=== PATIENT | female | born 1960 | race Caucasian/White ===

== ENCOUNTER → 2024-08-16 10:33 | Outpatient (REF) | payer BC, SELFPAY | LOC: HWRCS 10:33 | PROVIDERS: ATTENDING PHYSICIAN Thoracic Surgery (Cardiothoracic Vascular Surgery); FAMILY PHYSICIAN Internal Medicine | DX: I35.0 Nonrheumatic aortic (valve) stenosis (principal); Z01.810 Encounter for preprocedural cardiovascular examination | CPT/HCPCS: 75572; 93306; Q9967 ==

== ENCOUNTER 2024-09-07 05:07 | Inpatient (IN) | payer BC, SELFPAY ==
[2024-08-16 11:57] VITALS: BMI 40.7
[2024-08-16 12:58] LABS: % Basophils 0.7 % (0-2); % Eosinophils 1.1 % (0-6); % Immature Granulocytes 0.3 % (0-0.5); % Lymphocytes 22.8 % (20.5-51.1); % Monocytes 7.2 % (1.7-9.3); % Neutrophils 67.9 % (42.2-75.2); Absolute Basophils 0.1 10^3/uL (0-0.2); Absolute Eosinophils 0.1 10^3/uL (0-0.7); Absolute Lymphocytes 1.7 10^3/uL (1.2-3.4); Absolute Monocytes 0.5 10^3/uL (0.1-0.6); Absolute Neutrophils 4.9 10^3/uL (1.4-6.5); Hematocrit 38.4 % (37.0-47.0); Hemoglobin 13.2 g/dL (12.0-16.0); Mean Corp Hgb Conc. 34.4 g/dL (33.0-37.0); Mean Corpuscular Hgb 30.7 pg (27.0-31.0); Mean Corpuscular Volume 89.3 fL (81.0-99.0); Mean Platelet Volume 10.2 fL (7.4-10.4); Nucleated Red Blood Cells % 0 %; Platelet Count 283 10^3/uL (130-400); Red Cell Dist. Width 12.2 % (11.5-14.5); White Blood Cell Count 7.3 10^3/uL (4.8-10.8)
[2024-08-16 13:04] LABS: INR 0.92; PT 12.7 Sec (11.4-14.6)
[2024-08-16 13:16] LABS: ALT (SGPT) 16 U/L (0-35); AST (SGOT) 22 U/L (14-36); Albumin 4.5 g/dl (3.5-5.0); Alkaline Phosphatase 89 U/L (38-126); Blood Urea Nitrogen 12 mg/dl (7-17); Calcium 9.8 mg/dl (8.4-10.2); Carbon Dioxide 27 mmol/L (22-30); Chloride 101 mmol/L (98-107); Direct Bilirubin 0.1 mg/dl (0.0-0.4); Estimated Creatinine Clearance 93 ml/min; Glucose 102 mg/dl (70-99); Potassium 4.3 mmol/L (3.5-5.1); Sodium 137 mmol/L (135-145); Total Bilirubin 0.9 mg/dl (0.2-1.3); Total Protein 7.3 g/dl (6.3-8.2); eGFR > 60.00
--- NOTE | 2024-08-16 13:22 | CM ---
spoke to pt in PAT's, we discussed pre AVR teaching including driving and lifting restrictions. she lives with her husb in a 2 story home with 10 steps to enter. she denies any dme's. she has the cardiac educ book, soap and instructions, she is
agreeable to a f/u visit from the ct transitional care nurse after dc. cm role explained and all questions answered. plan is for AVR 09/07/24. cm to alfonzo.
[2024-08-16 13:28] LABS: Urine Albumin 1+ (Neg - Trace); Urine Bilirubin Negative (Negative); Urine Character Clear (Clear); Urine Color Yellow; Urine Glucose Negative (Negative); Urine Ketone Negative (Negative); Urine Leukocyte 1+ (Negative); Urine Nitrite Negative (Negative); Urine Occult Blood 2+ (Negative); Urine Urobilinogen Negative (Neg - 1+)
[2024-08-16 14:15] LABS: Urine Amorphous Seen; Urine Mucus Moderate; Urine Squamous Cell >30 /LPF (Few)
[2024-08-16 14:18] LABS: Urine Bacteria Few (Negative)
[2024-08-16 14:34] LABS: Glycohemoglobin (HgbA1c) 5.4 % (4.0-5.6)
[2024-09-07] VITALS (22 sets, daily range): BP systolic 76–125; BP diastolic 54–94; BMI 40.2
--- NOTE | 2024-09-07 05:30 | PTCARENOTE ---
Admitted patient into 2265. Confirmed 2 CHG baths. Washed patient with CHG wipes. ABO drawn. Medications reviewed. Patient clipped. Medications administered. Atenolol held due to Bradycardia. Awaiting CVOR
[2024-09-07] MEDS: PROTONIX 40 MG PO (05:32)
[2024-09-07] MEDS: MAGNESIUM OXIDE 500 MG PO (05:32)
[2024-09-07] MEDS: BACTROBAN 2% OINTMENT 1 APPLIC NASAL ×2 (05:33→19:35)
--- NOTE | 2024-09-07 05:44 | W.PN.UPDATE ---
Update Note
Progress Note Update
Pt's AM dose BB is contraindicated and not given. Pt's HR 47 bpm
--- NOTE | 2024-09-07 06:23 | W.CVOR.SURPR ---
CVOR Surgeon Immed Pre Op
-
I have examined this patient prior to performance of the scheduled procedure.
The patient's condition is unchanged from the time of the dictated/written History and
Physical and the patient is able to undergo the scheduled procedure.
Sternotomy AVR (bio) + Asc Ao Repair + MC Clip
[2024-09-07 07:29] LABS: Urine Albumin 2+ (Neg - Trace); Urine Bilirubin Negative (Negative); Urine Character Clear (Clear); Urine Color Yellow; Urine Glucose Negative (Negative); Urine Ketone Negative (Negative); Urine Leukocyte Negative (Negative); Urine Nitrite Negative (Negative); Urine Occult Blood 2+ (Negative); Urine Specific Gravity 1.025 (<1.030); Urine Urobilinogen Negative (Neg - 1+)
[2024-09-07 07:31] LABS: ACT+ - POC 96 Seconds (82-134)
[2024-09-07 07:39] LABS: Urine Squamous Cell 0-2 /LPF (Few)
[2024-09-07 07:40] LABS: Urine Bacteria Few (Negative); Urine Mucus Moderate
--- NOTE | 2024-09-07 08:17 | CM ---
Reviewed chart. Mrs. Hawkins is in the operating room today. Prior to admission she resides with her spouse in a two stpry home with ten steps to enter. Prior to admission she was independent with ambulation and adls. She does not have any DME in the
home. She has a prescription plan. Medical work-up in progress. The discharge plan is to return home with her spouse and a home visit by the Transitional Care Nurse when medically stable.
[2024-09-07 08:19] LABS: ACT+ - POC 581 Seconds (82-134)
[2024-09-07 08:34] LABS: B.E. - POC 0.7 mmol/L; Glucose - POC 106 mg/dl (70-99); HCO3 - POC 25 mmol/L (21-28); Hematocrit - POC 33 % PCV (37-47); Hemodilution- POC No; Hemoglobin Calculated - POC 11.3; Ionized Calcium - POC 1.15 mmol/L (1.15-1.33); O2 Saturation %Calculated-POC 99.9 % (94-98); PCO2 - POC 38 mmHg (35-48); PO2 - POC 251 mmHg (83-108); Potassium - POC 3.4 mmol/L (3.5-5.1); Sodium - POC 144 mmol/L (136-145); Specimen Type - POC Arterial; pH - POC 7.43 (7.35-7.45)
[2024-09-07 08:44] LABS: ACT+ - POC 569 Seconds (82-134)
[2024-09-07 09:46] LABS: B.E. - POC 5.5 mmol/L; Glucose - POC 128 mg/dl (70-99); HCO3 - POC 29 mmol/L (21-28); Hematocrit - POC 27 % PCV (37-47); Hemodilution- POC Yes; Hemoglobin Calculated - POC 9.3; Ionized Calcium - POC 0.97 mmol/L (1.15-1.33); Lactate - POC 0.61 mmol/L (0.36-0.75); O2 Saturation %Calculated-POC 99.9 % (94-98); PCO2 - POC 37 mmHg (35-48); PO2 - POC 324 mmHg (83-108); POC Comment CPB; Potassium - POC 3.4 mmol/L (3.5-5.1); Sodium - POC 141 mmol/L (136-145); Specimen Type - POC Arterial
[2024-09-07 09:56] LABS: ACT+ - POC 489 Seconds (82-134)
[2024-09-07 10:13] LABS: B.E. - POC -3.9 mmol/L; Glucose - POC 299 mg/dl (70-99); HCO3 - POC 26 mmol/L (21-28); Hematocrit - POC 31 % PCV (37-47); Hemodilution- POC Yes; Hemoglobin Calculated - POC 10.7; Ionized Calcium - POC 1.08 mmol/L (1.15-1.33); Lactate - POC 4.47 mmol/L (0.36-0.75); O2 Saturation %Calculated-POC 99.9 % (94-98); PCO2 - POC 72 mmHg (35-48); PO2 - POC 340 mmHg (83-108); POC Comment WARM; Potassium - POC 2.7 mmol/L (3.5-5.1); Sodium - POC 142 mmol/L (136-145); Specimen Type - POC Arterial; pH - POC 7.16 (7.35-7.45)
[2024-09-07 10:22] LABS: ACT+ - POC 505 Seconds (82-134)
[2024-09-07 10:40] LABS: Glucose - POC 309 mg/dl (70-99); HCO3 - POC 23 mmol/L (21-28); Hematocrit - POC 30 % PCV (37-47); Hemodilution- POC Yes; Hemoglobin Calculated - POC 10.3; Ionized Calcium - POC 0.99 mmol/L (1.15-1.33); Lactate - POC 3.36 mmol/L (0.36-0.75); O2 Saturation %Calculated-POC 98.9 % (94-98); PCO2 - POC 42 mmHg (35-48); PO2 - POC 133 mmHg (83-108); Potassium - POC 4.4 mmol/L (3.5-5.1); Sodium - POC 142 mmol/L (136-145); Specimen Type - POC Arterial; pH - POC 7.36 (7.35-7.45)
[2024-09-07 10:51] LABS: ACT+ - POC 449 Seconds (82-134)
[2024-09-07 11:08] LABS: B.E. - POC 1.6 mmol/L; Glucose - POC 248 mg/dl (70-99); HCO3 - POC 27 mmol/L (21-28); Hematocrit - POC 30 % PCV (37-47); Hemodilution- POC Yes; Hemoglobin Calculated - POC 10.2; Ionized Calcium - POC 1.02 mmol/L (1.15-1.33); Lactate - POC 3.27 mmol/L (0.36-0.75); PCO2 - POC 46 mmHg (35-48); PO2 - POC 431 mmHg (83-108); Potassium - POC 3.4 mmol/L (3.5-5.1); Sodium - POC 145 mmol/L (136-145); Specimen Type - POC Arterial; pH - POC 7.38 (7.35-7.45)
[2024-09-07 11:16] LABS: ACT+ - POC 448 Seconds (82-134)
[2024-09-07 11:32] LABS: B.E. - POC -1.1 mmol/L; Glucose - POC 171 mg/dl (70-99); HCO3 - POC 26 mmol/L (21-28); Hematocrit - POC 31 % PCV (37-47); Hemodilution- POC Yes; Hemoglobin Calculated - POC 10.4; Ionized Calcium - POC 1.62 mmol/L (1.15-1.33); O2 Saturation %Calculated-POC 99.7 % (94-98); PCO2 - POC 57 mmHg (35-48); PO2 - POC 242 mmHg (83-108); Potassium - POC 3.5 mmol/L (3.5-5.1); Sodium - POC 147 mmol/L (136-145); Specimen Type - POC Arterial; pH - POC 7.28 (7.35-7.45)
[2024-09-07 11:36] LABS: ACT+ - POC 68 Seconds (82-134)
[2024-09-07 11:40] LABS: ACT+ - POC 76 Seconds (82-134)
[2024-09-07] MEDS: NEURONTIN PO ×3 (11:59→21:20)
--- NOTE | 2024-09-07 12:06 | W.PN.CT.SURG ---
CT Surgery Operative Note
-
CARDIAC SURGERY OPERATIVE REPORT
Preoperative Diagnosis: Bicuspid aortic valve, severe stenosis, ascending aortic aneurysm
Postoperative Diagnosis: Same, intraoperative intramural hematoma with imminent Type A Aortic dissection of the ascending thoracic aorta
Procedure(s) Performed:
1. Standard sternotomy
2. Urgent aortic and right atrial cannulation
3. Moderate hypothermic circulatory arrest with selective antegrade perfusion
4. Hemiarch replacement of the aorta as well as the ascending segment
5. Aortic root replacement - biological Bentall (25mm Valved Conduit)
6. Reimplantation of the right and left coronary ostia
7. Placement of temporary atrial and ventricular pacing wires
8. Transesophageal echocardiography
Date of Surgery: 09/07/2024
Comorbidities:
1. Bicuspid aortic valve morphology with severe stenosis
2. Ascending aortic aneurysm of the thoracic aorta
3. Morbidly obese with a BMI of greater than 30
4. Hypertension
5. Hyperlipidemia
6. Family history of CAD
7. Polyarteritis
8. Metabolic syndrome
9. Nephrolithiasis
10. Anxiety
Attending Surgeon: Lokesh Solis MD, MS
Assistants: Janneth Villalobos PA-C (present and necessary to employee relations assistant, retraction, suction, exposure, suture management, and wound closure under my direction)
Anesthesiology: Choco Hunter MD and Jose Arnold CRNA
Scrub and Circulating RNs: Margaret Kinsey RN and Skyla Hinkle, GURVINDER, Tyron Mercado, GURVINDER and Alfred Mann RN
Real Estate Broker: Frances Tucker CCP
Anesthesia: GETA
EBL: per perfusion records
Products: None, Factor VII only post protamine, and 325cc of CellSaver Scavenged Blood from the field
CPB Time: 172 minutes
Aortic Cross Clamp Time: 106 minutes
Circulatory Arrest: 39 minutes
Selective Antegrade Cerebral Perfusion: 35 minutes
Indication(s) for Procedures: This is a 63-year-old female with known bicuspid valve morphology with severe aortic valve stenosis, she was also found to have a 4.6 cm ascending aortic aneurysm without rupture. Given her young age, and severe
stenosis and slow creeping on her symptoms, she was offered surgical intervention with the idea of lifetime management.
Aorta and Aortic Valve Description: Heavily calcified towards the noncoronary cusp, right left fusion and heavy calcification at the right and non commissure. There is also evidence of aortic annular disjunction particularly towards the right
coronary cusps with the annulus had migrated down with evidence of muscle above the level of the annulus into sinus. Her tissue was extremely thin and friable. Her root was also very thin and abnormal in appearance. The right and left coronary
ostia were in their normal anatomic positions. There was not a significant LVOT calcium aside from calcium that extended from the noncoronary cusp down towards the aorto mitral curtain.
Findings: Her left ventricular ejection fraction preoperatively was normal at 65% with no significant regional wall motion abnormalities. She had a moderate degree of interventricular septal hypertrophy. But her anatomy was not at risk for
significant systolic anterior motion of the mitral leaflets. Following surgery EF remained the same at 65% with no new regional wall motion abnormalities. Her LV contractions were symmetrical and concentric. After heparinization and attempted
placement of pursestring sutures at the distal ascending/proximal arch, there was a significant hematoma as well as hemorrhage from the site. I elected to remove the pursestrings and applied pressure with a lap pad for several minutes. Even with
this, there was still a significant degree of bleeding from the tissue and a spreading hematoma distally and proximally down towards the root at the AP window. There was significant discern for intramural hematoma versus dissection. I elected to
place a temporary pledgeted 4-0 suture at the mid ascending in the aneurysm and cannulated with a Seldinger technique using the EOPA 20 Faroese cannula. This was done under KARINA guidance to ensure that the wire was in the true lumen down towards the
descending thoracic aorta. Once you are on cardiopulmonary bypass, I was able to have more controlled situation so we started to cool down towards a core temperature of 28 �C. While this was occurring, I dissected the AP window and found a
significant hematoma that extended down towards the root. Tissue was extremely friable. At this point I elected to cross clamp at the mid ascending aneurysm and 2 arrests using a 12-gauge Angiocath directly into the root given 1200 cc of
cardioplegia. At this point I opened the root and performed the aortic valve leaflet resection. The root was abnormal in appearance and had evidence of angle and ventricular disjunction. At this point I elected to perform a full root replacement.
The distal graft was done once we reached our target temperature using selective antegrade cerebral perfusion and moderate hypothermic circulatory arrest. [place] was used to send which the intima media and adventitial tissue on both sides. The
distal anastomosis was done using 4-0 Prolene in a running fashion. BioGlue was used to reinforce the suture lines. Once we completed the distal anastomosis I allowed reperfusion through the site cannula to the body and commenced rewarming to a
target temperature 34 �C. At this point I completed most of the root replacement using a total of 14 pledgeted 2 Ethibond sutures placed in the LVOT through annulus through sewing cuff of the valved conduit. Left and right coronary buttons were
reimplanted using 5-0 Prolene and bovine pericardium as a gasket. The graft graft anastomosis was performed using bovine as a gasket between the suture line. The plan was to come off cardiopulmonary bypass, reversed with protamine and give factor
VII immediately. There was good hemostasis and no additional blood products were required. Cardiac index end of case was 2.5 on no inotropic support, after short period of AV pacing she resumed her sinus rhythm. Modifier 22 due to the emergent
nature of cannulation and repair.
Specimen(s):
Ascending Aorta
Aortic Valve Leaflets
Aortic Sinus Tissue
Prosthesis:
1. 25mm LUCSA KONECT Valved Conduit, SN [id number]
2. Single Side Arm Intergard Woven Graft, 28mm, SN [id number]
3. Bovine pericardium, SN [id number]
4. Bard PTFE [place], SN [id number]
5. BioGlue, SN [id number]
6. FloSeal, SN [id number]
Description of Procedure: The patient was taken to the operating room. Their identity and procedure to be performed were verified and they were positioned supine on the operating table. Induction via general anesthesia with endotracheal intubation
was performed and central venous access and arterial monitoring were inserted. A preoperative transesophageal echocardiogram was performed to assess cardiac function and valvular function. The patient was then prepped and draped from chin to feet in
a sterile fashion. A preoperative time-out was performed with all members of the team present. A midline chest incision was performed along with median sternotomy. The innominate vein was isolated. Full heparinization was given (a total of 50,000
units). We created a pericardial well. The aortic cannulation site was chosen where it was soft, pliable, and free of calcium. Pursestring sutures were initially placed at the distal ascending aorta approximately arch junction and immediately with
the first suture, there was significant amount of hemorrhaging and hematoma buildup. Additional pledgeted suture was attempted to be placed however this was to no good effect. At this point elected to cut out the sutures and applied pressure using
a Ray-Holli sponge for approximately 2 minutes. Even with this there was still a significant degree of bleeding and there was an obvious hematoma propagating distally and proximally down towards the AP window. I elected to perform a temporary
pledgeted 4-0 prolene pursestring at the mid portion of the aneurysm and changed out my cannulas for a 20F EOPA cannula and cannulated under KARINA guidance with Seldinger technique verified that the wire was in the true lumen and in the descending
thoracic aorta. Serial dilation was performed before insertion of the cannula. A triple-stage venous cannula through the right atrial appendage. The arterial cannula line had an appropriate bounce and correlating pressures with test dosing. The ACT
was confirmed to be over 400 and because there was significant amount of hemorrhaging and blood loss we elected to not perform retrograde autologous priming was performed before commencing cardiopulmonary bypass. Once on cardiopulmonary bypass with
better pulm soccer control, a left ventricular vent was placed at the right superior pulmonary vein and secured. At this point I dissected the PA away from the ascending aorta and found that there was significant degree of hematoma at the AP window
that propagated down towards the root. I decided at this point to perform a kimberly-arch repair, and so started cooling to a core temp of 28 degrees C. The aortic cross-clamp was placed after decreasing the flow on the bypass and mean arterial
pressure. A total of 1.2L initial dose of antegrade Del-Nido cardioplegia solution was given using a 12G angiocath into the root and planned for re-dosing every 60 minutes as necessary. There was rapid electro-mechanical arrest of the heart at 250
cc of cardioplegia. Cold slush was placed into a sponge and topically on the RV while we systemically cooled to 28 degrees centigrade.
Carbon dioxide was used to flood the field. Cooling, I did transect the aorta circumferentially and placed a sutures at the commissures. The aortic valve was analyzed and resected as it was heavily calcified. Any calcium heading down towards the
aorta much greater was also debrided using rongeurs. There was evidence of annular disjunction with creeping of muscle into the sinuses. At this point I elected to perform a bio Bentall and so harvested the coronary buttons accordingly. 4-0
prolene pledgeted sutures were placed at the top of the coronary buttons in order to facilitate retraction. At this point, we had reached our target temperature and so the patient was placed into steep Trendelenburg position. Prior to this I had
dissected out and isolated the innominate artery as well as the left common carotid with Vesseloops in a double looped fashion. Flows were dropped to 0 and the aortic cannula was removed and the cross-clamp was released. Allowing the patient to
exsanguinate into the pump. Eyedrops echo was placed down the descending thoracic aorta and the ascending aortic tissue was resected up to the point of injury. Small tears were seen at this site. I excluded them by asked resecting this tissue and
then under direct vision I placed a soft retrograde cannula up into the innominate artery inflated the balloon de-aired and gave selective antegrade cerebral perfusion while tightening up both vessel loops to the head vessels. A small 7.5 mm with
drip of felt was fashioned and placed on the inside and outside of the aorta. 4-0 Prolene nonpledgeted sutures were placed to tack the felt sandwich into place. I sized the distal ascending aorta to a 28 mm graft. This was fashioned appropriately
and the distal anastomosis was performed with 4-0 Prolene in a running fashion. Endoflip was used to tighten up the sutures. Once this was done BioGlue was used to reinforce the suture line. I placed the existing EOPA cannula into the SideArm of
the graft and tied it with silk sutures. I then increased flows in the pump gently toward 2D air head vessels as well as the ascending thoracic aorta. A cross-clamp was then applied proximal to the SideArm and flow to the body and head vessels
were resumed with rewarming commenced to a target temperature of 34 �C. I turned my attention back to the root. I also redosed 200cc of cardioplegia in each ostia at this point. A total of 14 pledgeted 2-0 ethibond annular sutures were placed
[id number] (inverted) circumferentially. These were brought through the sewing cuff of the valved conduit which as then parachuted into place. A Cor-Knot device was used to secure the annular sutures. An eye cautery was used to first create a
small opening to perform left main coronary button anastomosis. The button was then trimmed accordingly and using 5-0 Prolene with a bovine pericardial gasket, the button was reimplanted toward the Filiberto-left sinus. BioGlue was used to reinforce the
buttoms. Volume was then used to fill the heart to estimate the location for the right coronary button anastomosis. In a similar fashion an eye cautery was used to create a small opening in the filiberto-right sinus and anastomosis was created with 5-0
Prolene running fashion using bovine pericardium as a gasket. The two grafts were trimmed accordinately and a graft to graft anastomosis was performed with 4-0 prolene using bovine pericaridum as a gasket.
De-airing maneuvers were performed and temporary bipolar ventricular pacing wires were placed on the base of the right ventricle and temporary atrial pacing wires at the SVC/Atrial junction. The patient was placed in a Trendelenburg position and
flows on bypass were lowered. The aortic cross clamp was removed and flows were slowly brought back up. The suture lines appeared hemostatic. Transesophageal echocardiography revealed no AI and appropriate prosthetic function. Once de-airing was
satisfactory, the left ventricular vent was removed. After verifying acceptable parameters, we initiated weaning from cardiopulmonary bypass. Once we were off cardiopulmonary bypass, the venous cannula was clamped and removed. A test dose of
protamine was administered and the patient was monitored for any adverse reaction before resuming protamine. Once half of the protamine dose was delivered, pump suckers were turned off and the systolic blood pressure was lowered for aortic
decannulation. This was done by double clamping the side arm and transecting it. Once hemostasis was confirmed, a GoldLoad EndoGIA stapler was used at the base of the side arm with additional large clips for reinforcement. All cannulation sites were
oversewn with a 4-0 prolene. The suture lines were inspected and hemostasis was confirmed. Mediastinal hemostasis was obtained. Two 24Fr Lonnie drains were placed within the pericardium. The sternum was approximated with 4 #7 single and 3 #8 double
stainless steel wires. Fascia was approximated with #1 vicryl suture. The subcutaneous, dermis and epidermis were closed in layers in a running fashion. The skin wound was cleansed and dressed.
All instrument, sponge, and needle counts were confirmed to be correct x 2 at the end of the operation. The patient was transferred to the cardiac intensive care unit in critical but stable condition.
I, Dr. Lokesh Solis, was present, scrubbed for, and performed all critical elements of this procedure.
Lokesh Solis MD, MS
Cardiothoracic Surgeon
[facility]
This dictation was created using the [employer] dictation system. Please excuse any grammatical, typographical, or 'sound alike' errors
[2024-09-07 12:12] LABS: B.E. - POC -5.1 mmol/L; Glucose - POC 120 mg/dl (70-99); HCO3 - POC 22 mmol/L (21-28); Hematocrit - POC 28 % PCV (37-47); Hemodilution- POC Yes; Hemoglobin Calculated - POC 9.7; Ionized Calcium - POC 1.26 mmol/L (1.15-1.33); Lactate - POC 5.15 mmol/L (0.36-0.75); O2 Saturation %Calculated-POC 99.6 % (94-98); PCO2 - POC 46 mmHg (35-48); PO2 - POC 207 mmHg (83-108); Potassium - POC 2.9 mmol/L (3.5-5.1); Sodium - POC 148 mmol/L (136-145); Specimen Type - POC Arterial; pH - POC 7.28 (7.35-7.45)
[2024-09-07 12:27] LABS: Glucose - Point of Care 54 mg/dl (70-99)
[2024-09-07 12:37] LABS: B.E. -0.8 mmol/L; HCO3 25.8 mmol/L (21-28); Ionized Calcium 1.23 mMOL/L (1.15-1.33); O2 Saturation % 98.6 % (94-98); PCO2 50 mmHg (32-35); PO2 90 mmHg (83-108); Sodium 141 mMOL/L (136-145); pH 7.32 (7.35-7.45)
[2024-09-07] MEDS: NSS 500 IV (12:38)
[2024-09-07] MEDS: DEXTROSE 50% SYRINGE 12.5 GRAMS IV (12:38)
[2024-09-07] MEDS: ANCEF 10 IV ×2 (12:38)
[2024-09-07 12:39] LABS: Hematocrit 32.8 % (37.0-47.0); Hemoglobin 11.5 g/dL (12.0-16.0); Platelet Count 154 10^3/uL (130-400)
[2024-09-07] MEDS: KCL 50 IV ×3 (12:41→14:52)
[2024-09-07 12:42] LABS: Glucose - Point of Care 104 mg/dl (70-99)
[2024-09-07 12:47] LABS: INR 0.72; PT 10.5 Sec (11.4-14.6)
[2024-09-07 12:48] LABS: APTT 29.1 Sec (23.4-35.0)
--- NOTE | 2024-09-07 12:54 | W.PN.UPDATE ---
Update Note
Progress Note Update
63-year-old female was electively admitted on 09/07/2024 for AVR, root replacement due to severe aortic stenosis and ascending aortic aneurysm of 4.6 cm
IV fluids: 1500
U.O.:� 550
Blood:� none
Wires:� A + V wires
Drips: Cardene, Levophed off on arrival to CVICU, Insulin, Precedex
�
NEURO: sedated, pupils +2mm B/L
RESP: #8OT @23cm> 400/60%/14/8 as SPO2 93%. Lungs clear B/L. 2 mediastinal (20cc on arrival) chest tubes to -20cm suction. Sanguineous drainage, no air leak,no crepitus
CV: RRR +S1, S2, no S3, no�rub, no murmur. Dermabond to median sternotomy. RIJ w/[place] locked @ 46cm. PA ; CVP 13 ; C.O 3.25/CI 1.63; SVR 1600
ABD: obese, soft, no BS
EXT: no edema, +2/4 DP pulses B/L, no femoral bruit, left radial A-line intact
: [place] with clear yellow urine
�
A/P: POD #0 s/p Bio-Bentall root replacement #25, Hemiarch replacement, reimplantation of coronaries
KARINA: EF�60-65%, AV mean 7mmHg
- wean and extubate
- will need instruction regarding antibiotic prophylaxis for dental and invasive procedures
- keep SBP 90-110mmHg
# acute surgical blood loss anemia-expected
- trend CBC
# HTN
- on Atenolol 50mg BID @ home
- protocol Lopressor post-op
�
# Post-op Hypoglycemia
- insulin infusion >off
- D50 1/2 amp
- trend glucose
�
# Class II Obesity (BMI 40.2)
- calorie controlled diet and increase calorie expenditure
[2024-09-07 13:06] LABS: Blood Urea Nitrogen 17 mg/dl (7-17); Estimated Creatinine Clearance 92 ml/min; Glucose 54 mg/dl (70-99); Magnesium 2.9 mg/dl (1.6-2.3)
--- NOTE | 2024-09-07 13:11 | CON.INTV ---
Consultation
Consultation Request
Date/Time Consultation Requested: 09/07/24
Date/Time Consultation Performed: 09/07/24
Performing Provider: Lauri
Reason for Consultation: CVICU
Medical History
-
History of Present Illness:
Patient is a 63-year-old female with a previous history of aortic valve stenosis, presenting for elective surgical aortic valve replacement. Denied any associated symptomatology including shortness of breath, fatigue. She underwent elective
procedure 09/07/24 and postoperatively transferred to CVICU on mechanical ventilation for further management.
Past Medical History
Past Medical History: Other (see list below)
Social History
Tobacco: Non-smoker
Alcohol: None
Drug: None
Family History
Family History: Reviewed & Not Pertinent
Allergies / Home Medications
Allergies
Allergy/AdvReac Type Severity Reaction Status Date / Time
No Known Allergies Allergy Unverified 08/12/24 11:07
Home Medications
�Medication �Instructions �Recorded �Confirmed �Last Taken �Type
aspirin 81 mg capsule 81 mg PO DAILY 08/12/24 09/07/24 09/06/24 08:00 History
atenolol 50 mg tablet 50 mg PO BID 08/12/24 09/07/24 09/06/24 08:00 History
omega-3 fatty acids 1,000 mg PO DAILY 08/12/24 09/07/24 08/30/24 15:00 History
magnesium 250 mg tablet 250 mg PO DAILY 09/07/24 09/07/24 09/06/24 15:00 History
Review of Systems
-
Unable to Obtain full review of systems at this time due to: Patient Intubation
Vitals / Labs / Diagnostic Testing
Vital Signs
Temp Pulse Resp BP Pulse Ox
96.0 F L 63 0 90/69 92
09/07/24 13:00 09/07/24 13:05 09/07/24 13:05 09/07/24 13:01 09/07/24 13:05
Lab Data
09/07/24 12:26
Laboratory Results
09/07/24
12:26
PT 10.5 L
INR 0.72
APTT 29.1
pH 7.32 L
pCO2 50 H
pO2 90
HCO3 25.8
O2 Delivery Level
Diagnostic Testing:
Physical Exam
-
HEENT: Normocephalic, Anicteric and Moist Mucous Membranes
Cardiovascular: S1/S2 and Regular Rhythm
Respiratory: Clear, Non-Labored Respirations and Other (ETT/chest tube)
GI: Soft, Non Distended and Non Tender
Neurology: Other (sedated/intubated)
Skin: Warm, Dry and Good Color
General: Comfortable and Other (NAD)
Assessment
-
Patient is a 63-year-old female with a previous history of aortic valve stenosis, presenting for elective surgical aortic valve replacement. Denied any associated symptomatology including shortness of breath, fatigue. She underwent elective
procedure 09/07/24 and postoperatively transferred to CVICU on mechanical ventilation for further management.
Bicuspid aortic valve, severe stenosis, ascending aortic aneurysm s/p Hemiarch replacement of the aorta as well as the ascending segment/Aortic root replacement - biological Bentall (25mm Valved Conduit)/Reimplantation of the right and left coronary
ostia 09/07/24
Perioperative MV
Postop anemia
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
Palpitations
Hypertension
Family history of premature CAD
Morbid obesity, BMI 40
Lumbar stenosis status post epidural injections
Hyperlipidemia
Metabolic syndrome
Polyarthritis
Anxiety
Nephrolithiasis
Appendectomy 2012
Cardiac cath 07/14/2024
Plan
S/p aortic intervention POD #0
Titrate off pressors per protocol
ECHO reviewed with normal function
PA catheter readings reviewed
Management of chest tubes per primary service
Intubated/sedated, initiate SAT when able
Pain control
RASS goal of 0 to -1
Intubated for procedure, SBT trial when patient able to spontaneously breath
Current vent settings: SIMV 400/14/60/5+
ABG(s) reviewed--slight hypercarbia noted, possible indication of underlying ANDREY/OHS (7.32-50, 7.35-46)
CXR with no obvious opacities/infiltrates, low lung volumes, ETT in good position, lines/tubes in place
Extubate per protocol
Maintain supplement oxygen as needed
No prior history of pulmonary disease, suspect ANDREY
OP PSG recommended
Prior PFTs reviewed--none
Can add nebulizers if needed
Aspiration precautions
Encouraged incentive spirometry, OOB/ambulation/early mobility
Advance diet as tolerated following extubation
GI prophylaxis if indicated for mechanical ventilation >48 hours
Monitor critical I/O's
Campa/chest tube output
Hb/platelets postoperatively stable, mild anemia noted
Trend CBC for now
Can transfuse if indicated for Hb <7, plt <50 in surgical patients
DVT prophylaxis including SCDs
Insulin protocol initiated and ongoing
Transition to SQ/off as indicated per team
We will follow
Diagnostic Data
Chest X-Ray: 09/07/24- The tip of endotracheal tube is 9 mm above the mae.. The tip of the right [place]-Mario catheter is in the region of the pulmonary outflow tract. The tip of a left chest tube is in the left costophrenic angle. There is a
mediastinal drainage catheter present. Lungs: The lungs are clear. No pleural effusion or pneumothorax.
11/01/21- 1. Clear lungs.
2. Mild cardiomegaly, without evidence of decompensated congestive heart failure.
CT Scan: Coronary CT 08/19/24- No pulmonary nodules, areas of airspace disease, pleural effusions, pericardial effusions or enlarged lymph nodes in the thorax. Origins of the great vessels from the aortic arch are patent.
Fusiform aneurysmal dilatation of the ascending thoracic aorta measuring up to 4.6 cm. Minimal coronary artery calcifications.
Echo:
KARINA 09/07/24- Normal left ventricular systolic function with no wall motion abnormalities. Septal hypertrophy is present. The LVEF is 60-65% by visual inspection. True bicuspid arotic valve in the 8-2 position with severe calcification extending
into the aortomitral continuity. Severe aortic stenosis. Grossly normal mitral valve. Grossly normal tricuspid valve. Ectatic ascending aorta with proximal of diameter 46 mm. The mid arch diameter is 28 mm. A small pericardial effusion is present.
08/16/24- Normal LV size and function without regional wall motion abnormalities. LVEF is 60-65% by visual estimation. Stage I diastolic dysfunction suggestive of abnormal relaxation. Normal right ventricular size and function.
Calcified possibly bicuspid AV with fusion of LCC and NCC. Moderate to severe aortic stenosis. Estimated pulmonary artery pressure of 29 mmHg assuming a right atrial pressure of 3 mmHg. Ascending aorta dilatation (4.5 cm). No prior study available
for comparison.
PFT's:
Reports and relevant images were personally reviewed.
Critical Care time 51 mins -- The patient is admitted for acute critical illness for the treatment of vital organ failure and/or prevention of further life-threatening conditions. Total care includes time spent in review of history, physical exam,
medications, hemodynamic/ventilator parameters, laboratory data, imaging and discussion with house staff, pharmacy, respiratory therapy, patrol officer, and nursing.
[2024-09-07] MEDS: DILAUDID 0.5 MG IV (13:14)
--- NOTE | 2024-09-07 13:27 | PTCARENOTE ---
Patient received from CVOR at 1220; Sedated and intubated; NSR rhythm on monitor; VSS; Epicardial AV wires insulated with temporary pacemaker turned on - settings DDD 40/10/0.4 40/10/0.8; +2 DP and radial pulses present; Lungs diminished at bases;
ETT size 8 positioned and secured at 22 cm right lip; Ventilator settings SIMV 14/400/5/5 FiO2 60%; CTx2 to -20 cm wall suction draining bloody drainage - no air leak, tidaling, or crepitus noted; Hypoactive BS; Cmapa catheter in place draining
clear, yellow urine; Sternal incision midline incision glued and approximated - CDI; Left radial A-line in place, [place] Mario present in [facility] Cordis at 43 cm - all lines zeroed and leveled; PIVx1 #18 RAC; Levo, Cardene, insulin, and precedex infusing -
see nursing flowsheets for further details; K repleted x2; CI < 2 - CVNP Merary Macias notified and aware; Ventilator settings adjusted following ABG results; see nursing documentation for further details.
CO: 3.65
CI: 1.83
SVR: 1,402
[2024-09-07 13:55] LABS: Glucose - Point of Care 111 mg/dl (70-99)
[2024-09-07 13:56] LABS: B.E. -0.5 mmol/L; HCO3 25.4 mmol/L (21-28); O2 Saturation % 95.4 % (94-98); PCO2 46 mmHg (32-35); PO2 70 mmHg (83-108); pH 7.35 (7.35-7.45)
[2024-09-07] MEDS: LR 250 ML IV ×3 (14:10→17:39)
[2024-09-07] MEDS: TYLENOL PO ×2 (14:47→21:20)
[2024-09-07 14:59] LABS: Glucose - Point of Care 120 mg/dl (70-99)
--- NOTE | 2024-09-07 15:32 | PTCARENOTE ---
Attempted CPAP trial but patient unable to tolerate due to apnea periods; Patient placed back on SIMV 18/400/5/5 FiO2 40% by RT at bedside
[2024-09-07 16:05] LABS: Glucose - Point of Care 129 mg/dl (70-99)
[2024-09-07] MEDS: PACERONE PO ×2 (16:13→21:20)
[2024-09-07 16:19] LABS: Hematocrit 35.5 % (37.0-47.0); Hemoglobin 12.5 g/dL (12.0-16.0); Platelet Count 197 10^3/uL (130-400)
--- NOTE | 2024-09-07 16:25 | PTCARENOTE ---
RT in room and patient placed on CPAP trial. EPO ABG due at 0366
[2024-09-07 17:06] LABS: Glucose - Point of Care 147 mg/dl (70-99)
[2024-09-07 17:06] LABS: B.E. - POC -1.7 mmol/L; Blood Urea Nitrogen - POC 20 mg/dl (3-120); Chloride - POC 117 mmol/L (96-111); Creatinine - POC 0.73 mg/dl (0.3-1.0); Glucose - POC 159 mg/dl (70-99); HCO3 - POC 22 mmol/L (21-28); Hematocrit - POC 33 % PCV (37-47); Hemodilution- POC No; Hemoglobin Calculated - POC 11.1; Ionized Calcium - POC 1.11 mmol/L (1.15-1.33); Lactate - POC 2.47 mmol/L (0.36-0.75); O2 Saturation %Calculated-POC 99.7 % (94-98); PCO2 - POC 33 mmHg (35-48); PO2 - POC 183 mmHg (83-108); Potassium - POC 4.6 mmol/L (3.5-5.1); Sodium - POC 150 mmol/L (136-145); Specimen Type - POC Arterial; pH - POC 7.43 (7.35-7.45)
--- NOTE | 2024-09-07 17:16 | PTCARENOTE ---
[facility] with NIKKO Macias; RT at bedside; Patient extubated at 1710 and placed on 6L NC
[2024-09-07] MEDS: CALCIUM GLUCONATE 100 IV (17:28)
[2024-09-07 18:04] LABS: Glucose - Point of Care 165 mg/dl (70-99)
[2024-09-07] MEDS: LOW STRENGTH ASPIRIN 81 MG PO (18:05)
[2024-09-07 19:04] LABS: Glucose - Point of Care 125 mg/dl (70-99)
[2024-09-07] MEDS: ANCEF 5 IV (19:35)
[2024-09-07 20:01] LABS: Glucose - Point of Care 119 mg/dl (70-99)
[2024-09-07] MEDS: ZOFRAN 4 MG IV (20:25)
--- NOTE | 2024-09-07 20:44 | PTCARENOTE ---
Patient vomited one episode of bile colored emesis; PRN IV Zofran given accordingly and patient states relief of nausea at this time
[2024-09-07] MEDS: REGLAN 10 MG IV (21:15)
[2024-09-07] MEDS: SENOKOT-S PO (21:20)
--- NOTE | 2024-09-07 21:21 | PTCARENOTE ---
Patient vomited again - episode of bile colored emesis; LICAH Beard notified - IV Reglan ordered and given
[2024-09-07 22:01] LABS: Glucose - Point of Care 144 mg/dl (70-99)
[2024-09-07 23:12] LABS: Glucose - Point of Care 100 mg/dl (70-99)
--- NOTE | 2024-09-07 23:30 | PTCARENOTE ---
Assumed care of patient at 2300. Patient found resting in bed at time of assessment. Patient is AOx4, follows commands appropriately, moves all extremities. Reports some left handed numbess. Lung sounds a diminished throughout, saO2 96% on 2L via
NC, IS 1500, CTx2: 2xmeds connected to one atrium with red sanguineous drainage. Heart sounds are audible, patient is SR with PVCs, normal palpable pulses with no observable edema, patient has A+V wires not connected to box. Settings as follows A
wires 40/10/0.4, V wires 40/10/0.8. Patient has hypoactive BS throughout all quadrants there is a [place] draining clear yellow urine. Patient has sternal incision approx with surg adhesive MIKE and ABD dressing over CT wounds that is CDI. Patient has
R IJ cordis with swan @43, L radial wisam, and R AC 18G PIV. Patient is on insulin gtt column 2 and has Cordis/VIP KVO. Patient c/o moderate pain exacerbated by respirations. CT PA notified received orders for ofirmevx1. Call victor within reach.
[2024-09-07] MEDS: OFIRMEV 100 IV (23:48)
[2024-09-08] VITALS (20 sets, daily range): BP systolic 89–131; BP diastolic 52–77; PULSE 70; O2SAT 96–98; BMI 41.0
--- NOTE | 2024-09-08 00:05 | W.PN.CT ---
Today's Communication / Plan
-
No major issues overnight�
Extubated at 1700 on 09/07�
Blood pressure goal SBP 90 to 110 (weaned off levophed)�
Maintain 2 med chest tubes�
Maintain pacer wires A+V�
Vomiting Overnight: requiring Zofran, Reglan, and Compazine�(work best)
Continue current meds (Amiodarone, ASA, Atenolol, gabapentin, protonix�
Urine output�
Patient deline and stokes removed
Assessment / Plan
-
s/p s/p Hemiarch replacement of the aorta as well as the ascending segment/Aortic root replacement - biological Bentall (25mm Valved Conduit)/Reimplantation of the right and left coronary ostia 09/07/24�POD 1
Severe aortic stenosis�
Ascending aortic aneurysm of 4.6 cm�
Class II obesity�
Palpitations�
Hypertension�
Lumbar stenosis�
Hyperlipidemia�
Polyarthritis�
Anxiety�
Nephrolithiasis�
Appendectomy�
Anxiety�
Metabolic syndrome�
Polyarteritis�
�
Post op Anemia�
Subjective
Procedure
S/p s/p Hemiarch replacement of the aorta as well as the ascending segment/Aortic root replacement - biological Bentall (25mm Valved Conduit)/Reimplantation of the right and left coronary ostia 09/07/24 POD1
-
Date of Service: September 08, 2024
Objective Data
-
PT 10.5 Sec (11.4-14.6) L 09/07/24 12:26
INR 0.72 09/07/24 12:26
APTT 29.1 Sec (23.4-35.0) 09/07/24 12:26
Vital Signs
Vital Signs
Temp Pulse Resp BP Pulse Ox
97.7 F 65 13 98/66 95
09/07/24 23:00 09/07/24 23:35 09/07/24 23:35 09/07/24 23:00 09/07/24 23:35
CT Intake/Output/Weight
09/07/24 09/07/24 09/08/24
06:59 18:59 06:59
Intake Total 1412.7 / 1580.5 167.8 / 1580.5
Output Total 700 / 1010 310 / 1010
Balance 712.7 / 570.5 -142.2 / 570.5
SaO2: 95
Physical Exam
-
General: AOx3
Cardiovascular: Regular rate & rhythm
Respiratory: Clear
Sternum: Stable
Incision: Clean, Dry and Intact
Extremities: Edema +1
Data Reviewed
-
Lab Results: Results Reviewed
Chest X-Ray: Report Reviewed
[2024-09-08 00:18] LABS: Glucose - Point of Care 115 mg/dl (70-99)
--- NOTE | 2024-09-08 00:24 | PTCARENOTE ---
Patient with nausea, dry heaving without emesis. CT ER NURSE notified. Orders received for compazine.
[2024-09-08] MEDS: COMPAZINE 10 MG IV (00:33)
[2024-09-08 01:16] LABS: Glucose - Point of Care 98 mg/dl (70-99)
[2024-09-08 02:10] LABS: Glucose - Point of Care 121 mg/dl (70-99)
[2024-09-08 03:39] LABS: Hematocrit 32.7 % (37.0-47.0); Hemoglobin 11.2 g/dL (12.0-16.0); Mean Corp Hgb Conc. 34.3 g/dL (33.0-37.0); Mean Corpuscular Hgb 31.2 pg (27.0-31.0); Mean Corpuscular Volume 91.1 fL (81.0-99.0); Mean Platelet Volume 10.5 fL (7.4-10.4); Platelet Count 164 10^3/uL (130-400); Red Blood Cell Count 3.59 10^6/uL (4.20-5.40); Red Cell Dist. Width 12.3 % (11.5-14.5); White Blood Cell Count 21.5 10^3/uL (4.8-10.8)
[2024-09-08 03:58] LABS: Blood Urea Nitrogen 23 mg/dl (7-17); Calcium 8.9 mg/dl (8.4-10.2); Carbon Dioxide 25 mmol/L (22-30); Chloride 114 mmol/L (98-107); Estimated Creatinine Clearance 92 ml/min; Glucose 110 mg/dl (70-99); Magnesium 2.2 mg/dl (1.6-2.3); Potassium 4.7 mmol/L (3.5-5.1); Sodium 144 mmol/L (135-145); eGFR > 60.00
[2024-09-08 04:06] LABS: Glucose - Point of Care 103 mg/dl (70-99)
[2024-09-08] MEDS: ANCEF 5 IV ×2 (04:25→12:57)
--- NOTE | 2024-09-08 05:37 | PTCARENOTE ---
Patient reassessed. EKG obtained. Labs obtained. Patient remains in SR on the desk monitor. Patient with short run 6 beats vtach on monitor CT TRANSPORTATION OPERATIONS MANAGER aware. No c/o pain. Call victor within reach.
[2024-09-08] MEDS: TYLENOL 1000 MG PO ×3 (05:53→22:23)
[2024-09-08 06:04] LABS: Glucose - Point of Care 121 mg/dl (70-99)
--- NOTE | 2024-09-08 07:13 | W.PN.ANS.POP ---
Anesthesia Post Operative
- Anesthesia Post Op Note
Vital Signs Stable-See Nursing Note: Yes
Airway Patent: Yes
Adequate Pain Control: Yes
Change in Mental Status: No
Current Postoperative Nausea & Vomiting: No
Anesthesia Complications: No
General Anesthetic Recall: No
Unplanned Admission: No
Post Op Hydration Adequate: Yes
- -
Pt awake and alert, OOB to chair with no anesthesia related c/o at time of post op visit. VSS, no N/V at time of post op visit.
[2024-09-08 08:07] LABS: Glucose - Point of Care 117 mg/dl (70-99)
[2024-09-08] MEDS: LOW STRENGTH ASPIRIN 81 MG PO (08:07)
[2024-09-08] MEDS: MAGNESIUM OXIDE 500 MG PO ×2 (08:07→20:26)
[2024-09-08] MEDS: NEURONTIN 100 MG PO ×3 (08:07→22:23)
[2024-09-08] MEDS: SENOKOT-S 1 TABLET PO ×2 (08:07→20:26)
[2024-09-08] MEDS: LIDOCAINE 4% PATCH TOPICAL (08:08)
[2024-09-08] MEDS: PACERONE 200 MG PO ×3 (08:08→22:23)
[2024-09-08] MEDS: PROTONIX 40 MG PO (08:08)
[2024-09-08] MEDS: BACTROBAN 2% OINTMENT 1 APPLIC NASAL ×2 (08:09→20:26)
[2024-09-08] MEDS: TORADOL 15 MG IV ×2 (08:19→15:02)
--- NOTE | 2024-09-08 08:34 | PTCARENOTE ---
Rec'd pt this shift awake and alert. Pt NSR on monitor. 2l n/c oxygen. Encouraged coughing and deep breathing and use of IS. AM meds given. Toradol IV given for pain. See worklist for VS/I and O and assessments.
--- NOTE | 2024-09-08 09:08 | W.PN.CD ---
Today's Communication / Plan
-
Routine post operative management.
Monitor response to metoprolol.
Incentive spirometry.
Ambulate when appropriate.
Impression / Plan
-
Impression/Plan: 63 y/o female with HTN, HLD, obesity and severe with aortic root dilation admitted for elective SAVR and aortic root repair.
#Severe aortic valve stenosis
-Chronic, progressive.
-S/P bio-Bentall (#25 Lucas KONECT valved conduit, NS [id number]), 09/07/[address] Solis.
-Anticipate routine post operative care.
-Wean pressors/inotropes for MAP > 65 mmHg, CI > 1.8 L/min/m2.
-Metoprolol tartrate 12.5 mg given this morning.
-Encourage incentive spirometry.
-Ambulate when appropriate.
-Pain/chest tube management per CT surgery.
#Ascending aortic aneurysm
-Chronic.
-Hematoma developed during initial evaluation, prompting decision to proceed to root replacement.
-Bio-Bentall procedure as above with ascending aorta replacement (#28 Single Side Arm Intergard Woven Graft, SN [id number]).
-Post operative management as above.
#HTN
-Chronic, stable.
-Currently normotensive.
#HLD
-Chronic, stable.
Critical Care Time = 35 minutes.
Subjective/Interval History:
Bio-Bentall yesterday for severe , ascending aortic dilation/injury.
Nausea with dry heaving overnight, resolved this morning.
NSVT on monitor overnight (6 beats).
Weight is up 2.1 kg.
MAP consistently > 65 mmHg.
CI now > 2.0 (since 09/07/2024 @ 15:06).
SAO2 = 96% on 2LNC.
DATA:
Transthoracic Echocardiogram, 08/16/2024:
CONCLUSIONS
Normal LV size and function without regional wall motion abnormalities.
LVEF is 60-65% by visual estimation.
Stage I diastolic dysfunction suggestive of abnormal relaxation.
Normal right ventricular size and function.
Calcified possibly bicuspid AV with fusion of LCC and NCC. Moderate to severe
aortic stenosis.
Estimated pulmonary artery pressure of 29 mmHg assuming a right atrial pressure
of 3 mmHg.
Ascending aorta dilatation (4.5 cm).
No prior study available for comparison.
AVR/Ao Repair, 09/07/2024:
Procedure(s) Performed:
1. Standard sternotomy
2. Urgent aortic and right atrial cannulation
3. Moderate hypothermic circulatory arrest with selective antegrade perfusion
4. Hemiarch replacement of the aorta as well as the ascending segment (Single Side Arm Intergard Woven Graft, 28mm, SN [id number])
5. Aortic root replacement - biological Bentall (25mm [place] KONECT Valved Conduit, SN [id number])
6. Reimplantation of the right and left coronary ostia
7. Placement of temporary atrial and ventricular pacing wires
8. Transesophageal echocardiography
Intra-procedural transesophageal echocardiogram, 09/07/2024:
CONCLUSIONS
Normal left ventricular systolic function with no wall motion abnormalities.
Septal hypertrophy is present. The LVEF is 60-65% by visual inspection.
True bicuspid arotic valve in the 8-2 position with severe calcification
extending into the aortomitral continuity. Severe aortic stenosis.
Grossly normal mitral valve.
Grossly normal tricuspid valve.
Ectatic ascending aorta with proximal of diameter 46 mm. The mid arch diameter
is 28 mm.
A small pericardial effusion is present.
POST OPERATIVE FINDINGS
S/P BioBentall with size 25 valve, root enlargement and hemiarch.
The bioprosthetic aortic valve opens normally with a mean gradient of 7 mmHg
(cardiac index of 2.5). No regurgitation is present. The aortic arch appears
to be intact. The pericardial effusion is no longer seen. Otherwise unchanged
exam.
Physical Exam
Vital Signs/Labs
Vital Signs
Temp Pulse Resp BP Pulse Ox
36.9 C 74 18 96/63 96
09/08/24 08:03 09/08/24 08:08 09/08/24 08:03 09/08/24 08:08 09/08/24 08:25
09/06/24 09/07/24 09/08/24
11:59 11:59 11:59
Actual Weight 99.6 kg 101.7 kg
09/08/24 03:14
09/08/24 03:14
PT 10.5 Sec (11.4-14.6) L 09/07/24 12:26
INR 0.72 09/07/24 12:26
APTT 29.1 Sec (23.4-35.0) 09/07/24 12:26
Magnesium 2.2 mg/dl (1.6-2.3) 09/08/24 03:14
Physical Exam
Constitutional: No acute distress and Comfortable
EENT: Anicteric and Moist mucous membranes
Cardiovascular: Rhythm & rate is regular, Pedal edema is absent, JVD pressure is normal, S1S2 is normal and Murmur/rub/gallop absent
Respiratory: Respiratory effort normal and Other (Decreased throughout.)
GI: Soft, Distention absent, Flat, Non tender and Normal bowel sounds
Neuro/Psych: AO x 3
Data Reviewed
-
Date of Service: September 08, 2024
Medical Decision Making: Reviewed Test Results, Independent Historian Assessment and Test Interpretation
EKG: Tracing Personally Visualized and interpreted and Report Reviewed by me
Echo: Report Reviewed by me
X-Ray/CT/US/MRI/NUC/PET: Image Personally Visualized and interpreted and Report Reviewed by me
Labs: Labs Reviewed by me
Old Records: Reviewed
[2024-09-08] MEDS: LOPRESSOR 12.5 MG PO ×2 (09:30→20:26)
[2024-09-08 09:56] LABS: Glucose - Point of Care 111 mg/dl (70-99)
[2024-09-08] MEDS: NSS IV (10:34)
[2024-09-08 12:30] LABS: Glucose - Point of Care 94 mg/dl (70-99)
--- NOTE | 2024-09-08 12:32 | W.PN.INTV ---
Addendum entered and electronically signed by Latricia Carreon DO 09/08/24 16:00:
Transferred to tele, we will sign off at this time
Please call with questions
Original Note:
Today's Communication / Plan
Recommendations
Doing well post extubation, stable on RA
Pain control, encouraged IS
Chest tube management per team
Titrating off insulin gtt per protocol
Can likely transfer to tele once off gtts
Assessment
-
Patient is a 63-year-old female with a previous history of aortic valve stenosis, presenting for elective surgical aortic valve replacement. Denied any associated symptomatology including shortness of breath, fatigue. She underwent elective
procedure 09/07/24 and postoperatively transferred to CVICU on mechanical ventilation for further management.
Bicuspid aortic valve, severe stenosis, ascending aortic aneurysm s/p Hemiarch replacement of the aorta as well as the ascending segment/Aortic root replacement - biological Bentall (25mm Valved Conduit)/Reimplantation of the right and left coronary
ostia 09/07/24
Perioperative MV
Postop anemia
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
Palpitations
Hypertension
Family history of premature CAD
Morbid obesity, BMI 40
Lumbar stenosis status post epidural injections
Hyperlipidemia
Metabolic syndrome
Polyarthritis
Anxiety
Nephrolithiasis
Appendectomy 2012
Cardiac cath 07/14/2024
Plan
S/p aortic intervention POD #1
Titrated off pressors per protocol
ECHO reviewed with normal function
PA catheter discontinued
Management of chest tubes per primary service
Pain control
RASS goal of 0 to -1
Intubated for procedure, extubated 09/07 and doing well
ABG(s) reviewed--slight hypercarbia noted, possible indication of underlying ANDREY/OHS (7.32-50, 7.35-46)
CXR with stable post op changes
Maintain supplement oxygen as needed
No prior history of pulmonary disease, suspect ANDREY
OP PSG recommended
Prior PFTs reviewed--none
Can add nebulizers if needed
Aspiration precautions
Encouraged incentive spirometry, OOB/ambulation/early mobility
Advance diet as tolerated following extubation
GI prophylaxis if indicated for mechanical ventilation >48 hours
Monitor critical I/O's
Campa/chest tube output
Hb/platelets postoperatively stable, mild anemia noted
Trend CBC for now
Can transfuse if indicated for Hb <7, plt <50 in surgical patients
DVT prophylaxis including SCDs
Insulin protocol initiated and ongoing
Transition to SQ/off as indicated per team
Diagnostic Data
Chest X-Ray: 09/07/24- The tip of endotracheal tube is 9 mm above the mae.. The tip of the right [place]-Mario catheter is in the region of the pulmonary outflow tract. The tip of a left chest tube is in the left costophrenic angle. There is a
mediastinal drainage catheter present. Lungs: The lungs are clear. No pleural effusion or pneumothorax.
11/01/21- 1. Clear lungs.
2. Mild cardiomegaly, without evidence of decompensated congestive heart failure.
CT Scan: Coronary CT 08/19/24- No pulmonary nodules, areas of airspace disease, pleural effusions, pericardial effusions or enlarged lymph nodes in the thorax. Origins of the great vessels from the aortic arch are patent.
Fusiform aneurysmal dilatation of the ascending thoracic aorta measuring up to 4.6 cm. Minimal coronary artery calcifications.
Echo:
KARINA 09/07/24- Normal left ventricular systolic function with no wall motion abnormalities. Septal hypertrophy is present. The LVEF is 60-65% by visual inspection. True bicuspid arotic valve in the 8-2 position with severe calcification extending
into the aortomitral continuity. Severe aortic stenosis. Grossly normal mitral valve. Grossly normal tricuspid valve. Ectatic ascending aorta with proximal of diameter 46 mm. The mid arch diameter is 28 mm. A small pericardial effusion is present.
08/16/24- Normal LV size and function without regional wall motion abnormalities. LVEF is 60-65% by visual estimation. Stage I diastolic dysfunction suggestive of abnormal relaxation. Normal right ventricular size and function.
Calcified possibly bicuspid AV with fusion of LCC and NCC. Moderate to severe aortic stenosis. Estimated pulmonary artery pressure of 29 mmHg assuming a right atrial pressure of 3 mmHg. Ascending aorta dilatation (4.5 cm). No prior study available
for comparison.
PFT's:
Reports and relevant images were personally reviewed.
Critical Care time 31 mins -- The patient is admitted for acute critical illness for the treatment of vital organ failure and/or prevention of further life-threatening conditions. Total care includes time spent in review of history, physical exam,
medications, hemodynamic/ventilator parameters, laboratory data, imaging and discussion with house staff, pharmacy, respiratory therapy, dye feeder, and nursing.
Subjective Dataa
Subjective Data
Date of Service:
Date of Service: September 08, 2024
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
Subjective:
Extubated and doing well, no issues overnight
Sitting in chair, on RA
Objective Data
Data Reviewed
Vital Signs / I&O / Oxygen:
Vital Signs
Temp Pulse Resp BP Pulse Ox
98.4 F 71 18 94/67 93
09/08/24 08:03 09/08/24 09:55 09/08/24 08:03 09/08/24 09:30 09/08/24 09:40
Intake and Output
09/07/24 09/08/24 09/09/24
06:59 06:59 06:59
Intake Total 1862.1 / 1862.1 36.9 / 36.9
Output Total 1365 / 1365 155 / 155
Balance 497.1 / 497.1 -118.1 / -118.1
SaO2 [CPAP/PSV] 99
SaO2 [SIMV] 97
SaO2 93
Nasal Cannula flow liters per 2
minute
Physical Exam
General: Comfortable and Other (NAD)
HEENT: Normocephalic, Anicteric and Moist Mucous Membranes
Cardiovascular: S1-S2 and Regular Rhythm
Respiratory: Clear, Non-Labored Respirations and Chest Tube
GI: Soft, Non Distended and Non Tender
Neurology: Awake, Alert, Oriented and No Motor Deficits
Skin: Warm, Dry and Good Color
Labs/Micro/Reports
Lab Data
09/08/24 03:14
09/08/24 03:14
Laboratory Results
09/07/24 09/07/24
12:26 13:47
PT 10.5 L
INR 0.72
APTT 29.1
pH 7.32 L 7.35
pCO2 50 H 46 H
pO2 90 70 L
HCO3 25.8 25.4
O2 Delivery Level
--- NOTE | 2024-09-08 12:33 | CM ---
Reviewed chart. Met with Mrs. Hawkins to review discharge plans. She states she is feeling okay. She states prior to admission she resides with her spouse and sister in a one story home with five steps to enter. She states prior to admission she was
independent with ambulation and adls. She states she does not have any DME in the home. She states she has a prescription plan. She states her spouse will be home for two weeks to assist in her care if needed. We reviewed a home visit by the
Transitional Care Nurse. She is agreeable to a home visit. Medical work-up in progress. The discharge plan is to return home with her spouse and sister and a home visit by the Transitional Care Nurse when medically stable.
--- NOTE | 2024-09-08 16:53 | PTCARENOTE ---
Pt ambulating in room and in hallway, tolerated well. Pt remains NSR on monitor, RA.
[2024-09-08] MEDS: ROXICODONE 5 MG PO (19:04)
--- NOTE | 2024-09-08 20:00 | PTCARENOTE ---
Assumed care of the patient from day shift. Patient OOB in chair, c/o 8/10 chest pain. PRN medications discussed d/t concern for nausea and patient given Oxycodone per order. AOx3, answering questions appropriately, no n/t. NSR on monitor rate 70's,
no edema appreciated, heart tones audible, AV wires present and insulated, pacer box on, set on bedside table, see work list for settings. Lungs CTA, CTx2 to -20 cm wall suction, no air leak, tidaling, or crepitus noted, on RA, deep breathing
encouraged. Patient does not endorse nausea or vomiting at this time, appetite ok. Voiding without difficulty in the toilet as needed. All surgical sites CDI. See nursing work list for additional interventions. Call victor within reach, plan of care
discussed, assessment of needs ongoing.
[2024-09-09] VITALS (18 sets, daily range): BP systolic 86–111; BP diastolic 55–68; PULSE 75; O2SAT 94–95; BMI 41.3
--- NOTE | 2024-09-09 00:31 | PTCARENOTE ---
Patient up to the bathroom x1 with min assistance. No dizziness, n/v, hypotensive to 86/56 and 91/60, CVPA notified.
--- NOTE | 2024-09-09 04:00 | PTCARENOTE ---
Patient unchanged, sleeping between care. VSS
[2024-09-09 04:39] LABS: Hematocrit 29.3 % (37.0-47.0); Hemoglobin 9.8 g/dL (12.0-16.0); Mean Corp Hgb Conc. 33.4 g/dL (33.0-37.0); Mean Corpuscular Hgb 30.9 pg (27.0-31.0); Mean Corpuscular Volume 92.4 fL (81.0-99.0); Mean Platelet Volume 10.1 fL (7.4-10.4); Platelet Count 148 10^3/uL (130-400); Red Blood Cell Count 3.17 10^6/uL (4.20-5.40); Red Cell Dist. Width 12.9 % (11.5-14.5); White Blood Cell Count 20.8 10^3/uL (4.8-10.8)
[2024-09-09] MEDS: ROXICODONE 5 MG PO ×3 (04:50→22:53)
[2024-09-09 05:00] LABS: Blood Urea Nitrogen 21 mg/dl (7-17); Calcium 8.7 mg/dl (8.4-10.2); Carbon Dioxide 28 mmol/L (22-30); Chloride 106 mmol/L (98-107); Estimated Creatinine Clearance 93 ml/min; Glucose 130 mg/dl (70-99); Potassium 4.4 mmol/L (3.5-5.1); Sodium 138 mmol/L (135-145); eGFR > 60.00
--- NOTE | 2024-09-09 05:53 | W.PN.CT ---
Today's Communication / Plan
-
No major issues overnight�
Extubated at 1700 on 09/07�
Blood pressure goal SBP 90 to 110 (weaned off levophed)�
Maintain 2 med chest tubes, drained 120ml in 12hrs, 360ml in 24hrs
Maintain pacer wires A+V�
Vomiting Overnight: requiring Zofran, Reglan, and Compazine�(work best)
Continue current meds (Amiodarone, ASA, Atenolol, gabapentin, protonix�
Urine output�325ml in 12hrs, 675ml in 24hrs
Patient deline and stokes removed
encourage IS / chest PT / OOB
PT/OT
dispo planning
Assessment / Plan
-
s/p s/p Hemiarch replacement of the aorta as well as the ascending segment/Aortic root replacement - biological Bentall (25mm Valved Conduit)/Reimplantation of the right and left coronary ostia 09/07/24�POD 2
Severe aortic stenosis�
Ascending aortic aneurysm of 4.6 cm�
Class II obesity�
Palpitations�
Hypertension�
Lumbar stenosis�
Hyperlipidemia�
Polyarthritis�
Anxiety�
Nephrolithiasis�
Appendectomy�
Anxiety�
Metabolic syndrome�
Polyarteritis�
�
Post op Anemia�
Discussed patient care with: Care Team
Subjective
Procedure
S/p s/p Hemiarch replacement of the aorta as well as the ascending segment/Aortic root replacement - biological Bentall (25mm Valved Conduit)/Reimplantation of the right and left coronary ostia 09/07/24
-
Date of Service: September 09, 2024
Objective Data
-
Lab Results
09/08/24 03:14
09/08/24 03:14
PT 10.5 Sec (11.4-14.6) L 09/07/24 12:26
INR 0.72 09/07/24 12:26
APTT 29.1 Sec (23.4-35.0) 09/07/24 12:26
Vital Signs
Vital Signs
Temp Pulse Resp BP Pulse Ox
98.8 F 74 18 101/69 93
09/08/24 20:00 09/08/24 20:13 09/08/24 20:00 09/08/24 20:13 09/08/24 20:13
CT Intake/Output/Weight
09/08/24 09/08/24 09/09/24
06:59 18:59 06:59
Intake Total 449.4 / 1862.1 886.9 / 996.9 110 / 996.9
Output Total 665 / 1365 590 / 650 60 / 650
Balance -215.6 / 497.1 296.9 / 346.9 50 / 346.9
SaO2: 93
Physical Exam
-
General: Awake, Oriented and AOx3
Cardiovascular: Regular rate & rhythm
Respiratory: Clear and Equal
Sternum: Stable
Incision: Clean, Dry and Intact
Extremities: Edema +1
Data Reviewed
-
Lab Results: Results Reviewed
Medications: Active Meds Reviewed
Chest X-Ray: Image Reviewed
Vital Signs / Labs
-
Vital Signs and Labs:
Temp Pulse Resp BP Pulse Ox
99 F 73 16 101/59 91
09/09/24 04:00 09/09/24 04:01 09/09/24 04:00 09/09/24 04:01 09/09/24 04:00
09/09/24 04:21
09/09/24 04:21
09/06/24 09/08/24 09/08/24
07:27 06:00 08:06
WBC
RBC
Hgb
Hct
BUN
Glucose
POC Glucose 121 H 117 H
Crossmatch IS Only See Detail
09/08/24 09/09/24
09:54 04:21
WBC 20.8 H
RBC 3.17 L
Hgb 9.8 L
Hct 29.3 L
BUN 21 H
Glucose 130 H
POC Glucose 111 H
Crossmatch IS Only
[2024-09-09] MEDS: TYLENOL 1000 MG PO ×3 (06:01→21:54)
--- NOTE | 2024-09-09 07:45 | W.PN.CD ---
Today's Communication / Plan
-
Monitor BP (ok to hold metoprolol).
If BP remains satisfactory, try furosemide 40 mg IV x1 and monitor for effect.
Keep electrolytes balanced.
Incentive spirometry.
Ambulate.
Chest tube management per CT surgery.
Impression / Plan
-
Impression/Plan: 63 y/o female with HTN, HLD, obesity and severe with aortic root dilation admitted for elective SAVR and aortic root repair.
#Severe aortic valve stenosis
-Chronic, progressive.
-S/P bio-Bentall (#25 Lucas KONECT valved conduit, NS [phone]), 09/07/[address] Solis.
-Routine post operative care.
-Tolerating metoprolol tartrate 12.5 mg BID.
-Encourage incentive spirometry.
-Ambulate when appropriate.
-Pain/chest tube management per CT surgery.
-Monitor BP throughout the day. If BP is satisfactory, I favor furosemide 40 mg IV x1 and monitor response. Furthermore, her post operative HR is managed by amiodarone, making the need for metoprolol at the juncture suspect. In short, ok to hold
metoprolol if it allows for diuresis and placing the patient on a more optimal part of her Shaji-Starling curve.
-Keep K+ > 4, Mg ++ > 2, Ca ++ > 8 and PO4- > 2.5.
#Ascending aortic aneurysm
-Chronic.
-Hematoma developed during initial evaluation, prompting decision to proceed to root replacement.
-Bio-Bentall procedure as above with ascending aorta replacement (#28 Single Side Arm Intergard Woven Graft, SN [id number]).
-Post operative management as above.
#HTN
-Chronic, stable.
-Currently normotensive to mildly hypotensive.
#HLD
-Chronic, stable.
Subjective/Interval History:
Weight up 0.7 kg.
Ambulated to bathroom with minimal assist.
Mild hypotension overnight.
SaO2 91% on RA.
DATA:
Transthoracic Echocardiogram, 08/16/2024:
CONCLUSIONS
Normal LV size and function without regional wall motion abnormalities.
LVEF is 60-65% by visual estimation.
Stage I diastolic dysfunction suggestive of abnormal relaxation.
Normal right ventricular size and function.
Calcified possibly bicuspid AV with fusion of LCC and NCC. Moderate to severe
aortic stenosis.
Estimated pulmonary artery pressure of 29 mmHg assuming a right atrial pressure
of 3 mmHg.
Ascending aorta dilatation (4.5 cm).
No prior study available for comparison.
AVR/Ao Repair, 09/07/2024:
Procedure(s) Performed:
1. Standard sternotomy
2. Urgent aortic and right atrial cannulation
3. Moderate hypothermic circulatory arrest with selective antegrade perfusion
4. Hemiarch replacement of the aorta as well as the ascending segment (Single Side Arm Intergard Woven Graft, 28mm, SN [id number])
5. Aortic root replacement - biological Bentall (25mm LUCAS KONECT Valved Conduit, SN [id number])
6. Reimplantation of the right and left coronary ostia
7. Placement of temporary atrial and ventricular pacing wires
8. Transesophageal echocardiography
Intra-procedural transesophageal echocardiogram, 09/07/2024:
CONCLUSIONS
Normal left ventricular systolic function with no wall motion abnormalities.
Septal hypertrophy is present. The LVEF is 60-65% by visual inspection.
True bicuspid arotic valve in the 8-2 position with severe calcification
extending into the aortomitral continuity. Severe aortic stenosis.
Grossly normal mitral valve.
Grossly normal tricuspid valve.
Ectatic ascending aorta with proximal of diameter 46 mm. The mid arch diameter
is 28 mm.
A small pericardial effusion is present.
POST OPERATIVE FINDINGS
S/P BioBentall with size 25 valve, root enlargement and hemiarch.
The bioprosthetic aortic valve opens normally with a mean gradient of 7 mmHg
(cardiac index of 2.5). No regurgitation is present. The aortic arch appears
to be intact. The pericardial effusion is no longer seen. Otherwise unchanged
exam.
Physical Exam
Vital Signs/Labs
Vital Signs
Temp Pulse Resp BP Pulse Ox
37.2 C 73 16 101/59 91
09/09/24 04:00 09/09/24 04:01 09/09/24 04:00 09/09/24 04:01 09/09/24 04:00
09/07/24 09/08/24 09/09/24
11:59 11:59 11:59
Actual Weight 99.6 kg 101.7 kg 102.4 kg
09/09/24 04:21
09/09/24 04:21
PT 10.5 Sec (11.4-14.6) L 09/07/24 12:26
INR 0.72 09/07/24 12:26
APTT 29.1 Sec (23.4-35.0) 09/07/24 12:26
Magnesium 2.0 mg/dl (1.6-2.3) 09/09/24 04:21
Physical Exam
Constitutional: No acute distress and Comfortable
EENT: Anicteric and Moist mucous membranes
Cardiovascular: Rhythm & rate is regular, Pedal edema is absent, JVD pressure is normal, S1S2 is normal and Murmur/rub/gallop absent
Respiratory: Respiratory effort normal, Lungs clear to auscul., Wheeze Absent, Crackles Absent and Rhonchi Absent
GI: Soft, Distention absent, Flat, Non tender and Normal bowel sounds
Neuro/Psych: AO x 3
Data Reviewed
-
Date of Service: September 09, 2024
Medical Decision Making: Reviewed Test Results, Independent Historian Assessment and Test Interpretation
EKG: Tracing Personally Visualized and interpreted and Report Reviewed by me
Echo: Report Reviewed by me
X-Ray/CT/US/MRI/NUC/PET: Image Personally Visualized and interpreted and Report Reviewed by me
Labs: Labs Reviewed by me
Old Records: Reviewed
--- NOTE | 2024-09-09 08:15 | PTCARENOTE ---
Patient received from loan underwriter RN; AAOx4, responds spontaneously to RN and follows commands; Right eye ptosis; VSS; NSR on monitor; Epicardial AV wires insulated; +1 B/L LE and trace B/L UE edema; +2 DP and radial pulses; Shallow respirations;
Lungs diminished at bases; SpO2 91-94% on RA; CTx2 connected to -20 cm wall suction draining serosanguineous drainage - no crepitus, tidaling, or air leak noted; Hypoactive BS, poor appetite; Urinating clear, vesta urine in bathroom; Sternal
incision glued and approximated; PIV x1 RAC, RIJ Cordis with KVO infusing - see nursing flowsheets for further details; See nursing documentation for further information
[2024-09-09] MEDS: BACTROBAN 2% OINTMENT 1 APPLIC NASAL ×2 (08:42→20:06)
[2024-09-09] MEDS: LIDOCAINE 4% PATCH TOPICAL (08:42)
[2024-09-09] MEDS: PROTONIX 40 MG PO (08:44)
[2024-09-09] MEDS: LOPRESSOR 12.5 MG PO ×2 (08:44→20:04)
[2024-09-09] MEDS: MAGNESIUM OXIDE 500 MG PO ×2 (08:44→20:04)
[2024-09-09] MEDS: SENOKOT-S 1 TABLET PO ×2 (08:45→20:04)
[2024-09-09] MEDS: NEURONTIN 100 MG PO (08:45)
[2024-09-09] MEDS: LOW STRENGTH ASPIRIN 81 MG PO (08:45)
[2024-09-09] MEDS: PACERONE 200 MG PO ×3 (08:45→21:54)
[2024-09-09] MEDS: LASIX 20 MG IV (10:40)
--- NOTE | 2024-09-09 13:18 | CM ---
Reviewed chart. Met with Mrs. Hawkins to review discharge plans. She states she is feeling a little uncomfortable today. She states she ambulated in the hallway today. Prior to admission she resides with her spouse and sister in a one story home
with five steps to enter. Prior to admission she was independent with ambulation and adls. She does not have any DME in the home. She has a prescription plan. Her spouse will be home for two weeks to assist in her care if needed. We reviewed a
home visit by the Transitional Care Nurse. She is agreeable to a home visit. Medical work-up in progress. The discharge plan is to return home with her spouse and sister with a home visit by the Transitional Care Nurse when medically stable.
--- NOTE | 2024-09-09 13:23 | PTCARENOTE ---
Epicardial AV wires pulled by CVNP Skyla Carbajal and chest tubes pulled by RN - VSS throughout and no complications noted; Patient ambulating in hallways with cardiac rehab; IV Lasix 20 mg ordered and given
[2024-09-09] MEDS: NSS IV (15:14)
--- NOTE | 2024-09-09 16:24 | PTCARENOTE ---
Patient ambulating in hallways with RN; Patient still complaining of poor appetite - Ensure given to patient
--- NOTE | 2024-09-09 20:00 | PTCARENOTE ---
Assumed care of the patient at 1900. Patient found in bed, lying on her side. Sternal precautions reinforced, patient assisted into a supine position. AOx3, forgetful, chronic R eye ptosis present. Heart tones audible, SR on the monitor rate 70's,
no edema noted, + pulses. Lungs dim at the bases, on RA, IS encouraged. Patient reports poor appetite, no n/v, has yet to pass flatus, BS hyperactive, abdomen SNT, round, obese. Voiding without difficulty into the toilet, urine vesta. MS incision
CDI with dermabond, CT dressing CDI. RIJ cordis present, PIVx1. Patient requires continual reinforcement of sternal precautions at this time. Additional needs assessment ongoing, call victor within reach, bed alarm on. See nursing worklist for
additional nursing intervention.
[2024-09-10] VITALS (12 sets, daily range): BP systolic 90–125; BP diastolic 55–72; PULSE 76; O2SAT 94–96; BMI 40.6
--- NOTE | 2024-09-10 | PTCARENOTE ---
Patient sleeping between care. Given PRN pain medication as patient felt she could not get comfortable. Sternal precautions reinforced, patient indicated understanding, however, needed continuous prompting when getting OOB to use sternal
precautions. Bed alarm on, call victor within reach, assessment of needs ongoing.
--- NOTE | 2024-09-10 02:27 | W.PN.CT ---
Today's Communication / Plan
-
No major issues overnight��
Continue current meds (Amiodarone, ASA, Atenolol, gabapentin, protonix)
Urine output�ml in 99677hns, 1850+ml in 24hrs
encourage IS / chest PT / OOB
PT/OT
dispo planning
Assessment / Plan
-
s/p s/p Hemiarch replacement of the aorta as well as the ascending segment/Aortic root replacement - biological Bentall (25mm Valved Conduit)/Reimplantation of the right and left coronary ostia 09/07/24�POD 3
Severe aortic stenosis�
Ascending aortic aneurysm of 4.6 cm�
Class II obesity�
Palpitations�
Hypertension�
Lumbar stenosis�
Hyperlipidemia�
Polyarthritis�
Anxiety�
Nephrolithiasis�
Appendectomy�
Anxiety�
Metabolic syndrome�
Polyarteritis�
�
Post op Anemia�
Subjective
Procedure
S/p s/p Hemiarch replacement of the aorta as well as the ascending segment/Aortic root replacement - biological Bentall (25mm Valved Conduit)/Reimplantation of the right and left coronary ostia 09/07/24
-
Date of Service: September 10, 2024
Objective Data
-
Lab Results
09/10/24 04:06
09/10/24 04:06
PT 10.5 Sec (11.4-14.6) L 09/07/24 12:26
INR 0.72 09/07/24 12:26
APTT 29.1 Sec (23.4-35.0) 09/07/24 12:26
Vital Signs
Vital Signs
Temp Pulse Resp BP Pulse Ox
98 F 72 18 94/58 94
09/10/24 00:00 09/10/24 00:04 09/10/24 00:00 09/10/24 00:04 09/10/24 00:00
CT Intake/Output/Weight
09/09/24 09/09/24 09/10/24
06:59 18:59 06:59
Intake Total 240 / 1126.9 970 / 970
Output Total 445 / 1035 1345 / 1470 125 / 1470
Balance -205 / 91.9 -375 / -500 -125 / -500
SaO2: 94
Physical Exam
-
General: AOx3
Cardiovascular: Regular rate & rhythm
Respiratory: Decreased Breath Sounds
Sternum: Stable
Incision: Clean, Dry and Intact
Extremities: No Edema
--- NOTE | 2024-09-10 04:00 | PTCARENOTE ---
Continued to remind patient of sternal precautions, OOB to bathroom ad katty, VSS
[2024-09-10 04:35] LABS: Hematocrit 29.2 % (37.0-47.0); Mean Corp Hgb Conc. 34.2 g/dL (33.0-37.0); Mean Corpuscular Hgb 31.5 pg (27.0-31.0); Mean Corpuscular Volume 92.1 fL (81.0-99.0); Mean Platelet Volume 10.4 fL (7.4-10.4); Platelet Count 167 10^3/uL (130-400); Red Blood Cell Count 3.17 10^6/uL (4.20-5.40); Red Cell Dist. Width 12.8 % (11.5-14.5); White Blood Cell Count 22.6 10^3/uL (4.8-10.8)
[2024-09-10 04:58] LABS: Blood Urea Nitrogen 14 mg/dl (7-17); Calcium 8.7 mg/dl (8.4-10.2); Carbon Dioxide 29 mmol/L (22-30); Chloride 103 mmol/L (98-107); Estimated Creatinine Clearance 109 ml/min; Glucose 121 mg/dl (70-99); Magnesium 2.1 mg/dl (1.6-2.3); Potassium 3.8 mmol/L (3.5-5.1); Sodium 138 mmol/L (135-145); eGFR > 60.00
[2024-09-10] MEDS: TYLENOL 1000 MG PO ×3 (05:14→22:44)
[2024-09-10] MEDS: KCL 20 MEQ PO (05:14)
[2024-09-10] MEDS: NSS 500 IV (06:41)
--- NOTE | 2024-09-10 08:00 | PTCARENOTE ---
pt received from previous RN, oriented, OOB in chair. SR on the monitor, HR 90-100s. palpable pulses. pt on RA, 96% POX. lungs clear, IS encouraged. pt abdomen s/n, denies n/v. voids. ambulates w/ stand by assist. sterna incision MIKE, approximated.
surgical bra in place. chest tube sites c/d/i. RIJ cordis maintained. PIV. see worklist for VS, I&O, and assessment.
--- NOTE | 2024-09-10 08:39 | W.PN.CD ---
Today's Communication / Plan
-
Change metoprolol tartrate 12.5 mg BID to metoprolol succinate 25 mg daily.
Start furosemide 40 mg PO once and monitor response. This can then be used on a PRN basis.
Impression / Plan
-
Impression/Plan: 63 y/o female with HTN, HLD, obesity and severe with aortic root dilation admitted for elective SAVR and aortic root repair.
#Severe aortic valve stenosis
-Chronic, progressive.
-S/P bio-Bentall (#25 Lucas KONECT valved conduit, NS [phone]), 09/07/[address] Solis.
-Routine post operative care.
-Encourage incentive spirometry.
-Ambulate.
-Tolerating metoprolol tartrate 12.5 mg BID. Transition to metoprolol succinate 25 mg daily.
-Transition to furosemide 40 mg PO x1 (equivalent to 20 mg IV). This can then be used on a PRN basis for weight gain/fluid retention.
#Ascending aortic aneurysm
-Chronic.
-Hematoma developed during initial evaluation, prompting decision to proceed to root replacement.
-Bio-Bentall procedure as above with ascending aorta replacement (#28 Single Side Arm Intergard Woven Graft, SN [id number]).
-Post operative management as above.
#HTN
-Chronic, stable.
-Currently normotensive to mildly hypotensive.
#HLD
-Chronic, stable.
Subjective/Interval History:
JARETT.
Ambulated through the halls yesterday.
Furosemide 20 mg IV given yesterday.
Weight down 1.7 kg (102.4 --> 100.7).
SaO2 96% on RA.
Chest tubes removed.
DATA:
Transthoracic Echocardiogram, 08/16/2024:
CONCLUSIONS
Normal LV size and function without regional wall motion abnormalities.
LVEF is 60-65% by visual estimation.
Stage I diastolic dysfunction suggestive of abnormal relaxation.
Normal right ventricular size and function.
Calcified possibly bicuspid AV with fusion of LCC and NCC. Moderate to severe
aortic stenosis.
Estimated pulmonary artery pressure of 29 mmHg assuming a right atrial pressure
of 3 mmHg.
Ascending aorta dilatation (4.5 cm).
No prior study available for comparison.
AVR/Ao Repair, 09/07/2024:
Procedure(s) Performed:
1. Standard sternotomy
2. Urgent aortic and right atrial cannulation
3. Moderate hypothermic circulatory arrest with selective antegrade perfusion
4. Hemiarch replacement of the aorta as well as the ascending segment (Single Side Arm Intergard Woven Graft, 28mm, SN [id number])
5. Aortic root replacement - biological Bentall (25mm LUCAS KONECT Valved Conduit, SN [id number])
6. Reimplantation of the right and left coronary ostia
7. Placement of temporary atrial and ventricular pacing wires
8. Transesophageal echocardiography
Intra-procedural transesophageal echocardiogram, 09/07/2024:
CONCLUSIONS
Normal left ventricular systolic function with no wall motion abnormalities.
Septal hypertrophy is present. The LVEF is 60-65% by visual inspection.
True bicuspid arotic valve in the 8-2 position with severe calcification
extending into the aortomitral continuity. Severe aortic stenosis.
Grossly normal mitral valve.
Grossly normal tricuspid valve.
Ectatic ascending aorta with proximal of diameter 46 mm. The mid arch diameter
is 28 mm.
A small pericardial effusion is present.
POST OPERATIVE FINDINGS
S/P BioBentall with size 25 valve, root enlargement and hemiarch.
The bioprosthetic aortic valve opens normally with a mean gradient of 7 mmHg
(cardiac index of 2.5). No regurgitation is present. The aortic arch appears
to be intact. The pericardial effusion is no longer seen. Otherwise unchanged
exam.
Physical Exam
Vital Signs/Labs
Vital Signs
Temp Pulse Resp BP Pulse Ox
36.6 C 76 16 102/55 96
09/10/24 08:00 09/10/24 08:21 09/10/24 08:00 09/10/24 08:21 09/10/24 08:00
09/08/24 09/09/24 09/10/24
11:59 11:59 11:59
Actual Weight 101.7 kg 102.4 kg 100.7 kg
09/10/24 04:06
09/10/24 04:06
PT 10.5 Sec (11.4-14.6) L 09/07/24 12:26
INR 0.72 09/07/24 12:26
APTT 29.1 Sec (23.4-35.0) 09/07/24 12:26
Magnesium 2.1 mg/dl (1.6-2.3) 09/10/24 04:06
Physical Exam
Constitutional: No acute distress and Comfortable
EENT: Anicteric and Moist mucous membranes
Cardiovascular: Rhythm & rate is regular, JVD pressure is normal, Pedal edema present, S1S2 is normal and Murmur/rub/gallop absent
Respiratory: Respiratory effort normal, Lungs clear to auscul., Wheeze Absent, Crackles Absent and Rhonchi Absent
GI: Soft, Distention absent, Flat, Non tender and Normal bowel sounds
Neuro/Psych: AO x 3
Data Reviewed
-
Date of Service: September 10, 2024
Medical Decision Making: Reviewed Test Results, Independent Historian Assessment and Test Interpretation
EKG: Tracing Personally Visualized and interpreted and Report Reviewed by me
Echo: Report Reviewed by me
X-Ray/CT/US/MRI/NUC/PET: Image Personally Visualized and interpreted and Report Reviewed by me
Labs: Labs Reviewed by me
Old Records: Reviewed
[2024-09-10] MEDS: LOW STRENGTH ASPIRIN 81 MG PO (08:50)
[2024-09-10] MEDS: SENOKOT-S 1 TABLET PO ×2 (08:50→20:23)
[2024-09-10] MEDS: PROTONIX 40 MG PO (08:50)
[2024-09-10] MEDS: MAGNESIUM OXIDE 500 MG PO ×2 (08:50→20:23)
[2024-09-10] MEDS: ROXICODONE 5 MG PO ×3 (08:51→22:44)
[2024-09-10] MEDS: LIDOCAINE 4% PATCH 1 PATCH TOPICAL (08:51)
[2024-09-10] MEDS: PACERONE 200 MG PO ×3 (08:51→22:44)
[2024-09-10] MEDS: BACTROBAN 2% OINTMENT 1 APPLIC NASAL ×2 (08:51→20:23)
[2024-09-10] MEDS: LOPRESSOR PO (09:08)
--- NOTE | 2024-09-10 09:54 | CM ---
Reviewed chart. Met with Mrs. Hawkins to review discharge plans. She states she is feeling well. She states she is ambulating ok. We reviewed a home visit by the Transitional Care Nurse. She is agreeable to a home visit. Prior to admission she
resides in one story home her spouse and sister with five steps to enter. Prior to admission she was independent with ambulation and adls. She does not have any DME in the home. She has a prescription plan. Her spouse will be home for two weeks
to assist in her care if needed. Medial work-up in progress. The discharge plan is to return home with her spouse and sister and a home visit by the Transitional Care Nurse when medically stable.
--- NOTE | 2024-09-10 12:00 | PTCARENOTE ---
pt VSS, no changes in assessment. RIJ cordis dc'd as ordered. dressing c/d/i.
--- NOTE | 2024-09-10 15:39 | PTCARENOTE ---
pt VSS, Roxicodone given for pain, resting between care. pt encouraged to ambulate in hallway w/ family. pt ambulating independently in hallway.
--- NOTE | 2024-09-10 20:00 | PTCARENOTE ---
Assumed care of the patient at 1900. Patient in bed, AOx3. SR on the monitor rate 70's, trace edema, pulses palpable, heart tones audible. Lungs dim at the bases, RA. Hypoactive BS, passing flatus, no n/v reported. Patient voiding in the toilet
clear, yellow urine. 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 PIVx1 in RAC. Patient updated on POC, sternal precautions reinforced, call victor within reach, assessment of needs ongoing. See nursing work list for additional nursing
interventions.
[2024-09-10] MEDS: TOPROL XL 12.5 MG PO (20:22)
--- NOTE | 2024-09-11 | PTCARENOTE ---
No changes in assessment, patient sleeping between care, VSS.
[2024-09-11 00:17] VITALS: BP 113/68
--- NOTE | 2024-09-11 04:00 | PTCARENOTE ---
Patient OOB ad katty, using toilet, no issues, VSS, sleeping between care.
[2024-09-11 04:18] VITALS: BP 101/58
--- NOTE | 2024-09-11 05:15 | W.PN.CT ---
Addendum entered and electronically signed by Ty Rea MD 09/11/24 09:28:
I saw and examined the patient.
The PA's note was reviewed and I agree with the note.
Comment:
POD#4 s/p bio-bentall/hemiarch
Doing well
Check 2-view CXR
Home today
Original Note:
Today's Communication / Plan
-
Plan:
-No major issues overnight.Hemodynamically and neurologically intact
-Off all drips
-Replete K, 3.8
-F/U 2-view cxr
-Cont. current meds (ASA, Amiodarone, Toprol Xl per Cards-was on Atenolol at home)
-Encourage use of IS
-OOB into chair/Ambulate
-D/C home
Assessment / Plan
-
s/p s/p Hemiarch replacement of the aorta as well as the ascending segment/Aortic root replacement - biological Bentall (25mm Valved Conduit)/Reimplantation of the right and left coronary ostia, by Dr. Solis, 09/07/24�POD 4
Severe aortic stenosis�
Ascending aortic aneurysm of 4.6 cm�
Class II obesity�
Palpitations�
Hypertension�
Lumbar stenosis�
Hyperlipidemia�
Polyarthritis�
Anxiety�
Nephrolithiasis�
Appendectomy�
Anxiety�
Metabolic syndrome�
Polyarteritis�
�
Post op Anemia�
Discussed patient care with: Cardiology, Nursing, Respiratory Therapy, Pharmacy and Care Team
Subjective
Procedure
S/p s/p Hemiarch replacement of the aorta as well as the ascending segment/Aortic root replacement - biological Bentall (25mm Valved Conduit)/Reimplantation of the right and left coronary ostia 09/07/24
-
Date of Service: September 11, 2024
Pt c/o mild incisional pain, otherwise feels well. Ambulating halls without difficulty
Objective Data
-
PT 10.5 Sec (11.4-14.6) L 09/07/24 12:26
INR 0.72 09/07/24 12:26
APTT 29.1 Sec (23.4-35.0) 09/07/24 12:26
Vital Signs
Vital Signs
Temp Pulse Resp BP Pulse Ox
97.5 F 72 18 101/58 94
09/11/24 04:18 09/11/24 04:18 09/11/24 04:18 09/11/24 04:18 09/11/24 04:18
CT Intake/Output/Weight
09/10/24 09/10/24 09/11/24
06:59 18:59 06:59
Intake Total 120 / 1090 10 / 260 250 / 260
Output Total 525 / 1870 850 / 1475 625 / 1475
Balance -405 / -780 -840 / -1215 -375 / -1215
SaO2: 94 (RA)
Physical Exam
-
General: Awake, Oriented and AOx3
Cardiovascular: Regular rate & rhythm, No Murmurs, No Rub and No Gallop
Respiratory: Decreased Breath Sounds (at bases, otherwise clear)
Sternum: Stable
Incision: Clean, Dry, Intact and Dressing Intact
Extremities: No Edema
Data Reviewed
-
Lab Results: Results Reviewed
Medications: Active Meds Reviewed
Chest X-Ray: Report Reviewed and Image Reviewed
ECG: Report Reviewed and Image Reviewed
[2024-09-11] MEDS: TYLENOL 1000 MG PO (05:22)
[2024-09-11 05:33] LABS: Hematocrit 30.6 % (37.0-47.0); Hemoglobin 10.4 g/dL (12.0-16.0); Mean Corpuscular Hgb 31.2 pg (27.0-31.0); Mean Corpuscular Volume 91.9 fL (81.0-99.0); Platelet Count 208 10^3/uL (130-400); Red Blood Cell Count 3.33 10^6/uL (4.20-5.40); Red Cell Dist. Width 12.7 % (11.5-14.5); White Blood Cell Count 16.5 10^3/uL (4.8-10.8)
[2024-09-11 05:40] LABS: Blood Urea Nitrogen 11 mg/dl (7-17); Calcium 8.8 mg/dl (8.4-10.2); Carbon Dioxide 28 mmol/L (22-30); Chloride 102 mmol/L (98-107); Estimated Creatinine Clearance 108 ml/min; Glucose 119 mg/dl (70-99); Magnesium 2.2 mg/dl (1.6-2.3); Potassium 3.8 mmol/L (3.5-5.1); Sodium 140 mmol/L (135-145); eGFR > 60.00
[2024-09-11 06:00] VITALS: BMI 40.4
[2024-09-11] MEDS: KCL 20 MEQ PO (06:34)
[2024-09-11] MEDS: LIDOCAINE 4% PATCH TOPICAL (07:59)
[2024-09-11] MEDS: SENOKOT-S PO (07:59)
--- NOTE | 2024-09-11 08:55 | W.PN.CD ---
Today's Communication / Plan
-
Continue metoprolol 12.5 mg BID.
Furosemide 40 mg PO PRN weight gain only.
Stable for outpatient follow up.
Thank you for this interesting consult. Signing off. Please call with questions.
Impression / Plan
-
Impression/Plan: 63 y/o female with HTN, HLD, obesity and severe with aortic root dilation admitted for elective SAVR and aortic root repair.
#Severe aortic valve stenosis
-Chronic, progressive.
-S/P bio-Bentall (#25 Lucas KONECT valved conduit, NS [id number]), 09/07/[address] Solis.
-Routine post operative care.
-Encourage incentive spirometry.
-Continue metoprolol succinate 25 mg daily.
-Furosemide 40 mg PO to be used on a PRN basis for weight gain/fluid retention. No need for daily use at this time as she appears to be autodiuresing.
#Ascending aortic aneurysm
-Chronic.
-Hematoma developed during initial evaluation, prompting decision to proceed to root replacement.
-Bio-Bentall procedure as above with ascending aorta replacement (#28 Single Side Arm Intergard Woven Graft, SN [id number]).
#HTN
-Chronic, stable.
-Currently normotensive.
#HLD
-Chronic, stable.
Subjective/Interval History:
JARETT.
Feels well.
Weight down 0.6 kg.
CTS discharging today.
DATA:
Transthoracic Echocardiogram, 08/16/2024:
CONCLUSIONS
Normal LV size and function without regional wall motion abnormalities.
LVEF is 60-65% by visual estimation.
Stage I diastolic dysfunction suggestive of abnormal relaxation.
Normal right ventricular size and function.
Calcified possibly bicuspid AV with fusion of LCC and NCC. Moderate to severe
aortic stenosis.
Estimated pulmonary artery pressure of 29 mmHg assuming a right atrial pressure
of 3 mmHg.
Ascending aorta dilatation (4.5 cm).
No prior study available for comparison.
AVR/Ao Repair, 09/07/2024:
Procedure(s) Performed:
1. Standard sternotomy
2. Urgent aortic and right atrial cannulation
3. Moderate hypothermic circulatory arrest with selective antegrade perfusion
4. Hemiarch replacement of the aorta as well as the ascending segment (Single Side Arm Intergard Woven Graft, 28mm, SN [id number])
5. Aortic root replacement - biological Bentall (25mm LUCAS KONECT Valved Conduit, SN [id number])
6. Reimplantation of the right and left coronary ostia
7. Placement of temporary atrial and ventricular pacing wires
8. Transesophageal echocardiography
Intra-procedural transesophageal echocardiogram, 09/07/2024:
CONCLUSIONS
Normal left ventricular systolic function with no wall motion abnormalities.
Septal hypertrophy is present. The LVEF is 60-65% by visual inspection.
True bicuspid arotic valve in the 8-2 position with severe calcification
extending into the aortomitral continuity. Severe aortic stenosis.
Grossly normal mitral valve.
Grossly normal tricuspid valve.
Ectatic ascending aorta with proximal of diameter 46 mm. The mid arch diameter
is 28 mm.
A small pericardial effusion is present.
POST OPERATIVE FINDINGS
S/P BioBentall with size 25 valve, root enlargement and hemiarch.
The bioprosthetic aortic valve opens normally with a mean gradient of 7 mmHg
(cardiac index of 2.5). No regurgitation is present. The aortic arch appears
to be intact. The pericardial effusion is no longer seen. Otherwise unchanged
exam.
Physical Exam
Vital Signs/Labs
Vital Signs
Temp Pulse Resp BP Pulse Ox
36.4 C 72 18 101/58 94
09/11/24 04:18 09/11/24 04:18 09/11/24 04:18 09/11/24 04:18 04/12/25 06:23
09/09/24 09/10/24 09/11/24
11:59 11:59 11:59
Actual Weight 102.4 kg 100.7 kg 100.1 kg
09/11/24 04:54
09/11/24 04:54
PT 10.5 Sec (11.4-14.6) L 09/07/24 12:26
INR 0.72 09/07/24 12:26
APTT 29.1 Sec (23.4-35.0) 09/07/24 12:26
Magnesium 2.2 mg/dl (1.6-2.3) 09/11/24 04:54
Physical Exam
Constitutional: No acute distress and Comfortable
EENT: Anicteric and Moist mucous membranes
Cardiovascular: Rhythm & rate is regular, Pedal edema is absent, JVD pressure is normal, S1S2 is normal and Murmur/rub/gallop absent
Respiratory: Respiratory effort normal, Lungs clear to auscul., Wheeze Absent, Crackles Absent and Rhonchi Absent
GI: Soft, Distention absent, Flat, Non tender and Normal bowel sounds
Neuro/Psych: AO x 3
Data Reviewed
-
Date of Service: September 11, 2024
Medical Decision Making: Reviewed Test Results, Independent Historian Assessment and Test Interpretation
EKG: Tracing Personally Visualized and interpreted and Report Reviewed by me
Echo: Report Reviewed by me
X-Ray/CT/US/MRI/NUC/PET: Image Personally Visualized and interpreted and Report Reviewed by me
Labs: Labs Reviewed by me
Old Records: Reviewed
[2024-09-11 09:14] VITALS: BP 103/64
[2024-09-11] MEDS: LOW STRENGTH ASPIRIN 81 MG PO (09:14)
[2024-09-11] MEDS: BACTROBAN 2% OINTMENT 1 APPLIC NASAL (09:14)
[2024-09-11] MEDS: PACERONE 200 MG PO (09:14)
[2024-09-11] MEDS: MAGNESIUM OXIDE 500 MG PO (09:14)
[2024-09-11] MEDS: PROTONIX 40 MG PO (09:14)
[2024-09-11] MEDS: TOPROL XL 12.5 MG PO (09:15)
[2024-09-11] MEDS: NSS IV (09:15)
--- NOTE | 2024-09-11 09:15 | PTCARENOTE ---
Assumed care of patient at 0700. Pt is awake, alert, and oriented. No complaints of pain at this time. Pt remains SR with HR 70's. BP 103/64 MAP 75. Pulse oximetry 93-96% on room air. Pt utilizing IS, continues use encouraged. Pt with overall poor
appetite. States she had a bowel movement this morning. Voiding in bathroom without issue. Midsternal incision approximated and VARNISH REMOVER. Pt currently ambulating independently without issue.
--- NOTE | 2024-09-11 11:17 | W.DCSUMMARY ---
Discharge Summary
Discharge Data
Date of Admission: 09/07/24
Date of Discharge: 09/11/24
-
Pending Results: No
Hospital Course
Primary care physician: Juan Carlos George
Outpatient yarn dry room worker: Abdoul Coffey
Inpatient consultants: [facility] cardiology
Procedures:
1. Hemiarch replacement of the aorta as well as the ascending segment, Aortic root replacement - biological Bentall (25mm Valved Conduit), reimplantation of the right and left coronary ostia
Primary Diagnosis:
1. Bicuspid aortic valve, severe stenosis, ascending aortic aneurysm
Secondary Diagnoses:
1. 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
2. Class II obesity (BMI 40.4)
3. Hypertension
4. Hyperlipidemia
5. Family history of CAD
6. Polyarteritis
7. Metabolic syndrome
8. Nephrolithiasis
9. Anxiety
10. Acute post-op Coagulopathy
11. Acute postoperative dilutional anemia
12. Acute postoperative leukocytosis�expected
HPI: 63-year-old female was electively admitted on 09/07/2024 for AVR, root replacement due to bicuspid aortic valve with severe aortic stenosis and ascending aortic aneurysm of 4.6 cm.
Hospital course: Patient underwent Hemiarch replacement of the aorta as well as the ascending segment, aortic root replacement - biological Bentall (25mm Valved Conduit), reimplantation of the right and left coronary ostia by Dr. Lokesh Solis.
Please see operative report for complete details. Patient received no intraoperative blood products but did receive factor VII for coagulopathy. Patient returned to CVICU on Levophed, which was turned off on arrival to maintain systolic blood
pressure of 90-110 mmHg. Initial ABG with CO2 of 50, respiratory rate was increased to 18 and subsequent ABG corrected. Patient extubated at 1700 the day of surgery. Ferric gluconate was discontinued as hemoglobin 12.5. On postoperative day #1,
patient was transitioned off insulin. two mediastinal chest tubes and temporary epicardial atrial and ventricular wires were removed on postoperative day #2. Right IJ Cordis was removed on postoperative day #3, patient ambulated in halls with
cardiac rehab without incident. Patient had no episodes of postoperative atrial fibrillation and prophylactic amiodarone was discontinued on discharge. Hemoglobin was stable at 10.4 and creatinine 0.6 on day of discharge. WBC decreased from
22.6-16.5 and patient experienced no fevers. A post discharge CBC will be ordered to trend WBC. Weight was stable at discharge (100.1 kg) and a prescription for Lasix 40 mg as needed weight gain of greater than 2 pounds in 1 day or 5 pounds in 1
week was given to patient with instructions to call yarn dry room worker if she needs to take a dose. A 2 view chest x-ray performed on day of discharge reported no pericardial effusion or pneumothorax. Patient was deemed stable for discharge to home.
Home medication changes:
Stop Atenolol>changed to Metoprolol 12.5mg BID
Lasix prn
prn Oxycodone for pain
Discharge Plan
-
Patient Disposition: Home (Routine Discharge)
Discharge Diagnosis/Procedures: AVR, root and kimberly-arch replacement
Condition: Good
Diet: Low Cholesterol and 2 Gram Sodium
Activity: No strenuous activity
Driving Restrictions: Not until seen by your Dr
Bathing Restrictions: OK to Shower
Other Services: Cardiac Rehab
Specialty Instructions: Weigh Daily- Call MD for wt gain/loss 3 lbs overnight/5 lbs in 1 week
Activity Restrictions/Additional Instructions:
ACTIVITY:
-No strenuous activity: no heavy lifting, pushing, pulling anything over 15 pounds for one month
-continue to use stairs as tolerated
DRIVING RESTRICTIONS:
-No driving for one month or until approved by your surgeon
WOUND CARE:
-Shower daily. Use soap & water.
-No lotions, creams or powders on incision area.
DIET:
-continue a low fat/low cholesterol diet.
-IF you are diabetic, continue carb controlled diet.
CARDIAC REHAB:
-Please make appointment to start in 5-6 weeks with your local hospital program. (See Cardiac Rehabilitation Discharge Booklet).
SPECIALTY INSTRUCTIONS:
-Weigh yourself daily. Call your physician for any weight gain/loss of 3 lbs overnight or 5 lbs in one week.
-REPORT any clicking noise or uneven appearance of your sternum to your surgeon immediately.
-If you smoke, you are instructed to quit. The [place] smoking hotline phone number is [phone]
Referrals:
CT Transitional Care Nurse [Outside] - in one to two days
(
The Cardiothoracic Transitional Care Nurse will call you to set up a visit in 1-2 days.)
[facility] [Outside] (Please call [facility] for an appointment when you have cleared by your surgeon and/or yarn dry room worker. [phone])
Abdoul Coffey DO [Active] - 10/26/24 9:20 am
Juan Carlos George MD [Family Provider] - in four to six weeks (Please make n appointment in four to six weeks. )
Latricia Carreon DO [Active] - in six weeks (sleep apnea )
Lokesh Solis MD [Active] - 10/04/24 1:15 pm
Prescriptions:
New
acetaminophen 325 mg Tablet
650 mg PO Q4HPRN PRN (Reason: mild pain,headache,temp >101F ) Qty: 0 0RF
oxycodone 5 mg Tablet
5 mg PO Q4HPRN PRN (Reason: severe pain) Qty: 10 0RF
metoprolol succinate 25 mg Tablet Extended Release 24 Hr
12.5 mg PO BID Qty: 60 2RF
furosemide [Lasix] 40 mg tablet
40 mg PO .daily prn Qty: 20 0RF
Rx Instructions:
take for weight gain >2 lb/day or 5 lb/week. Notify yarn dry room worker if you take a dose!
Continued
omega-3 fatty acids Capsule
1,000 mg PO DAILY
aspirin 81 mg Capsule
81 mg PO DAILY
magnesium 250 mg Tablet
250 mg PO DAILY
Patient Comments:
'When she remembers for eye twitching'
Discontinued
atenolol 50 mg Tablet
50 mg PO BID
Discharge Orders:
Discharge Patient (As Directed); Ordered 09/11/24
Ordered By: Merary Cohu
Care Plan Goals
Care Plan Goals:
Problem: Readiness for enhanced knowledge related to diagnosis and treatment plan
Goal: Understand your diagnosis and treatment plan needs, including medications if applicable.
Instructions: Know your diagnosis, underlying causes and treatment plan options, including medications if applicable. Consult with your health care team to learn about your diagnosis and treatment plan, including medications if applicable.
Discharge Date and Time
Print Language: FRENCH
[2024-09-11 12:06] VITALS: BP 133/96
--- NOTE | 2024-09-11 13:25 | PTCARENOTE ---
Discharge order received. Pt showered. Peripheral IV and tele monitor removed. Reviewed discharge instructions with patient and pt's spouse. Questions addressed. Pt stable at discharge.
== END 2024-09-11 13:27 | disposition home or self-care (01) | DRG 220 ==
LOC: CVICU 05:07
PROVIDERS: Anesthesiology; Nurse Practitioner; ADMITTING PHYSICIAN Thoracic Surgery (Cardiothoracic Vascular Surgery); CONSULT PHYSICIAN Internal Medicine; CONSULT PHYSICIAN Internal Medicine Cardiovascular Disease; FAMILY PHYSICIAN Internal Medicine; OTHER PHYSICIAN Student in an Organized Health Care Education/Training Program
PROC: 02RF08Z Replacement of Aortic Valve with Zooplastic Tissue, Open Approach (ICD-10-PCS; 2024-09-07)
PROC: 5A1221Z Performance of Cardiac Output, Continuous (ICD-10-PCS; 2024-09-07)
PROC: 02RX0JZ Replacement of Thoracic Aorta, Ascending/Arch with Synthetic Substitute, Open Approach (ICD-10-PCS; 2024-09-07)
PROC: B24BZZ4 Ultrasonography of Heart with Aorta, Transesophageal (ICD-10-PCS; 2024-09-07)
DX: I35.0 Nonrheumatic aortic (valve) stenosis (principal); D68.9 Coagulation defect, unspecified; Z68.41 Body mass index [BMI] 40.0-44.9, adult; I97.418 Intraoperative hemorrhage and hematoma of a circulatory system organ or structure complicating other circulatory system procedure; I71.21 Aneurysm of the ascending aorta, without rupture; E66.812 Obesity, class 2; I10 Essential (primary) hypertension; E78.5 Hyperlipidemia, unspecified; E88.810 Metabolic syndrome; N20.0 Calculus of kidney; F41.9 Anxiety disorder, unspecified; E16.2 Hypoglycemia, unspecified; M48.061 Spinal stenosis, lumbar region without neurogenic claudication; M13.0 Polyarthritis, unspecified; Y83.2 Surgical operation with anastomosis, bypass or graft as the cause of abnormal reaction of the patient, or of later complication, without mention of misadventure at the time of the procedure; Z79.82 Long term (current) use of aspirin; Z79.899 Other long term (current) drug therapy; Z82.49 Family history of ischemic heart disease and other diseases of the circulatory system
CPT/HCPCS: 88305; 88311; 36415; 71045; 71046; 80048; 80053; 81003; 81015; 82248; 82330; 82565; 82805; 82810; 82947; 82962; 83036; 83735; 84132; 84302; 84520; 85014; 85018; 85025; 85027; 85049; 85610; 85730; 86850; 86900; 86901; 86920; 87070; 87086; 93005; 93312; 93320; 93325; 93880; 94002; C1768; J2916; J7189